=== PATIENT | male | born 1950 | race Caucasian/White ===

== ENCOUNTER 2017-08-01 20:00 | Observation (INO) ==
[2017-08-01] MEDS ORDERED: 0.9 % Sodium Chloride 1,000 ML ONE (20:19)
--- NOTE | 2017-08-01 20:45 | Emergency Department Note ---
Disposition Clinical Impression: Atrial flutter with rapid ventricular response, Hypokalemia Leukocytosis Qualifiers: Leukocytosis type: unspecified Qualified Code(s): D72.829 - Elevated white blood cell count, unspecified Disposition: Admitted As Inpatient Condition: Good Forms: ED Satisfaction Letter Arrhythmia/Palpitations HPI - General Chief Complaint: ED Arrhythmia/Palpitations Stated Complaint: Chest Pain Time Seen by Provider: 08/01/17 20:12 Source: patient Mode of arrival: private vehicle Limitations: no limitations Nursing Notes Reviewed: Yes Vital Signs Reviewed: Yes - History of Present Illness HPI Narrative: 67-year-old male history of COPD who presents to the ER with a chief complaint of chest pain. Patient states he noticed some pain a few hours ago. Has not felt well for a few days and was having pain intermittently during that time. Patient reports he had a left heart catheterization roughly 30 years ago that no workup since. No associated symptoms with the exception of some shortness of breath. He has noticed some lower extremity swelling during this time. Also states he felt some palpitations throughout this. Upon arrival he was noted to be in SVT with a rate of 150. Pt Subjective Complaint: rapid heart beat Onset (ago): hour(s) Duration: constant Severity: mild Context: occurred during rest Associated symptoms: Reports: chest pain, shortness of breath - Related Data Home Medications Medication Instructions Recorded Confirmed Albuterol Sulfate [Ventolin Hfa] 2 puff IH Q4H PRN 08/01/17 08/01/17 Budesonide/Formoterol 160/4.5 2 puff IH BID 08/01/17 08/01/17 [Symbicort 160/4.5] Lisinopril/Hydrochlorothiazide 1 tab PO DAILY 08/01/17 08/01/17 [Zestoretic 20-25 mg Tablet] Oxycodone HCl/Acetaminophen 1 tab PO QID PRN 08/01/17 08/01/17 [Percocet 10-325 mg Tablet] predniSONE [PredniSONE] 15 mg PO DAILY 08/01/17 08/01/17 Allergies Allergy/AdvReac Type Severity Reaction Status Date / Time Penicillins AdvReac Anaphylaxis Verified 08/01/17 20:58 All systems ED: reviewed and negative except as stated. Constitutional: Denies: fever Cardiovascular: Reports: chest pain, palpitations Respiratory: Reports: dyspnea. Denies: cough Gastrointestinal: Denies: abdominal pain, nausea, vomiting Past Medical History - Past Medical History Attestation: Yes The following information was validated with the patient. Source: patient Medical history: Reports: COPD, hypertension Surgical history: Reports: non-contributory Psychiatric history: Reports: no psych history - Social History Smoking Status: Former smoker Smokeless Tobacco Status: No Alcohol use: Reports: none Drug use: Reports: none Physical Exam - General Limitations: no limitations General appearance: alert, in no apparent distress - Head Head exam: atraumatic, normocephalic - Eye Eye exam: Present: normal appearance - ENT ENT exam: normal exam - Neck Neck exam: Present: normal inspection - Chest Chest inspection: Present: normal inspection, symmetric chest wall rise - Respiratory Respiratory exam: Present: normal lung sounds bilaterally - Cardiovascular Cardiovascular exam: Present: normal rhythm, tachycardia, normal heart sounds - Abdominal Exam Abdominal exam: Present: soft, Non-Tender. Absent: tenderness - Extremities Exam Extremities exam: Present: normal inspection, full ROM - Expanded Upper Extremity Exam Shoulder exam: Present: normal inspection, full ROM Arm exam: Present: normal inspection, full ROM Elbow exam: Present: normal inspection, full ROM Forearm/Wrist exam: Present: normal inspection, full ROM Hand exam: Present: normal inspection, full ROM - Expanded Lower Extremity Exam Hip/Pelvis exam: Present: normal inspection, full ROM Upper leg exam: Present: normal inspection, full ROM Knee exam: Present: normal inspection, full ROM Lower leg exam: Present: normal inspection, full ROM, swelling (1+ bilateral lower extremity pitting edema) Ankle exam: Present: normal inspection, full ROM Foot/toe exam: Present: normal inspection, full ROM Course Course Narrative: Patient seen and examined at time of arrival. EKG demonstrates SVT with a rate of 150. Otherwise hemodynamically stable with a good blood pressure. Proximal IV obtained. Crash cart in the room patient on pads. After assuring that he had a good blood pressure the patient was given 6 mg of adenosine which revealed an underlying atrial flutter rhythm. Quickly returned back to SVT. At this point we will Cardizem bolus and start an infusion as well as obtain a chest x-ray labs including troponin and TSH and electrolytes. He understands he will be admitted to the hospital and is in agreement. - Reevaluation(s) Reevaluation #1: Discussed results of imaging and labs with the patient. Converted to sinus rhythm after Cardizem bolus. Currently rate controlled on 5 mg of Cardizem infusion. Agreeable with being admitted. Vital Signs Temperature 98.3 F 08/01/17 20:03 Pulse Rate 153 08/01/17 20:03 Respiratory Rate 20 08/01/17 20:03 Blood Pressure 111/69 08/01/17 20:03 O2 Sat by Pulse Oximetry 95 08/01/17 20:03 Temperature 98.3 F 08/01/17 20:03 Pulse Rate 160 08/01/17 20:50 Respiratory Rate 17 08/01/17 20:50 Blood Pressure 137/88 08/01/17 20:50 O2 Sat by Pulse Oximetry 96 08/01/17 20:50 Oxygen Delivery Oxygen Delivery Nasal Cannula Arrhythmia/Palpitations - [facility] Narrative Medical decision making narrative: 67-year-old male presents for chest pain and palpitations. Symptoms began a few hours ago. Refused to come to the hospital previously. Noted to be in SVT on arrival. With 6 more grams of adenosine underlying rhythm found to be a flutter. Cardizem bolus and drip currently rate controlled. Noted to have a leukocytosis. No obvious source. He is admitted to the hospitalist service for a flutter with RVR. - Lab Data Lab results reviewed: Yes I reviewed the patient's lab results. Result diagrams: 08/01/17 20:20 08/01/17 20:20 Lab Results 08/01/17 08/01/17 08/01/17 Range/Units 20:20 20:20 21:04 WBC 17.0 H (4.3-11.1) K/mcL RBC 4.72 (4.19-5.50) M/mcL Hgb 15.6 (12.9-16.9) g/dL Hct 44.8 (37.5-50.1) % MCV 94.9 (83.0-100.0) fL MCH 33.1 (28.0-33.3) pg MCHC 34.8 (31.6-35.5) g/dL RDW 13.0 (11.5-14.5) % Plt Count 314 (140-400) K/mcL MPV 9.8 (9.4-12.4) fL Immature Gran % 1.1 (0-4) % Seg Neutrophils % 81.9 % Lymphocytes % 9.9 % Monocytes % 5.9 % Eosinophils % 0.8 % Basophils % 0.4 % Neutrophils # 14.0 H (1.6-8.9) K/mcL Lymphocytes # 1.7 (0.6-4.6) K/mcL Monocytes # 1.0 (0.0-1.3) K/mcL Eosinophils # 0.1 (0.0-0.6) K/mcL Basophils # 0.1 (0.0-0.2) K/mcL PT 10.6 (9.4-12.1) Seconds INR 1.0 APTT 28.1 (26.0-36.0) Seconds Sodium 136 (136-145) mEq/L Potassium 3.3 L (3.5-5.1) mEq/L Chloride 94 L (98-107) mEq/L Carbon Dioxide 29 (23-29) mEq/L BUN 15 (8-23) mg/dL Creatinine 0.88 (0.70-1.30) mg/dL Est GFR ( Amer) > 60 (> 60) Est GFR (Non-Af Amer) > 60 (> 60) BUN/Creatinine Ratio 17 (6-26) Glucose 163 H (70-105) mg/dL Calculated Osmolality 286 (280-300) Calcium 9.2 (8.6-10.3) mg/dL Troponin I < 0.03 (< 0.04) ng/mL TSH 2.042 (0.340-5.600) mcIU/mL - Radiology Data Radiology results reviewed: Yes I reviewed the patient's radiology results. Chest X-Ray 08/01/17 20:38 IMPRESSION: No acute focal airspace consolidation or overt pulmonary edema. D/ / Daryn Parry MD / Daryn Parry MD Interpreting Provider: Daryn Parry MD - EKG Data EKG attestation: Yes I reviewed and interpreted this EKG. EKG results narrative: EKG demonstrates SVT with a rate of 151. Normal axis. Normal intervals. Normal R-wave progression. No gross ST elevations or depressions. Prior EKG demonstrates sinus rhythm. EKG immediately following adenosine demonstrates atrial flutter waves evolving into normal sinus rhythm with a rate of 60 bpm. EKG 3 minutes later demonstrates SVT with a rate of 152. Unchanged from initial EKG. S.B.A.Dana. - Aditi.Luis Situation: Demographics, MOA Background: Presenting Complaint, Relevant PMH, Meds, & Allergies Assessment: Vital Signs, Course and respsone to treatment, Exam Concerns, Patient/Family Expectation, Pertinant Lab Results Recommendation: Barrier(s) to disposition, Recommendation based on pending studies, treatments, or consults S.B.A.Violet Report Given to: Dr. David Lucero Repor Time: 22:17
[2017-08-01 20:56] LABS: Basophils # 0.1 K/mcL (0.0-0.2); Basophils % 0.4 %; Eosinophils # 0.1 K/mcL (0.0-0.6); Eosinophils % 0.8 %; Hematocrit 44.8 % (37.5-50.1); Hemoglobin 15.6 g/dL (12.9-16.9); Immature Granulocytes % 1.1 % (0-4); Lymphocytes # 1.7 K/mcL (0.6-4.6); Lymphocytes % 9.9 %; Mean Corpuscular HGB Conc 34.8 g/dL (31.6-35.5); Mean Corpuscular Hemoglobin 33.1 pg (28.0-33.3); Mean Corpuscular Volume 94.9 fL (83.0-100.0); Mean Platelet Volume 9.8 fL (9.4-12.4); Monocytes % 5.9 %; Platelet Count 314 K/mcL (140-400); Red Blood Count 4.72 M/mcL (4.19-5.50); Segmented Neutrophils % 81.9 %
[2017-08-01 21:16] LABS: BUN/Creatinine Ratio 17 (6-26); Blood Urea Nitrogen 15 mg/dL (8-23); Calcium 9.2 mg/dL (8.6-10.3); Carbon Dioxide 29 mEq/L (23-29); Chloride 94 mEq/L (98-107); Glucose 163 mg/dL (70-105); Osmolality,Calculated 286 (280-300); Potassium 3.3 mEq/L (3.5-5.1); Sodium 136 mEq/L (136-145); Troponin I < 0.03 ng/mL (< 0.04); eGFR For African Americans > 60 (> 60); eGFR For Non-African Americans > 60 (> 60)
[2017-08-01 21:29] LABS: Thyroid Stimulating Hormone 2.042 mcIU/mL (0.340-5.600)
[2017-08-01 21:48] LABS: Prothrombin Time 10.6 Seconds (9.4-12.1)
[2017-08-01 21:51] LABS: Activated Partial Thrombo Time 28.1 Seconds (26.0-36.0)
[2017-08-01] MEDS ORDERED: Aspirin 81 MG TAB.CHEW PO ONE (22:30)
--- NOTE | 2017-08-01 22:45 | Emergency Department Note ---
Disposition Clinical Impression: Atrial flutter with rapid ventricular response, Hypokalemia Leukocytosis Qualifiers: Leukocytosis type: unspecified Qualified Code(s): D72.829 - Elevated white blood cell count, unspecified Disposition: Admitted As Inpatient Condition: Good General Adult HPI - General Chief complaint: ED Arrhythmia/Palpitations Stated complaint: Chest Pain Time Seen by Provider: 08/01/17 20:12 Source: patient Mode of arrival: private vehicle Limitations: no limitations - History of Present Illness Pain Scale: 0 - Related Data Home Medications Medication Instructions Recorded Confirmed Albuterol Sulfate [Ventolin Hfa] 2 puff IH Q4H PRN 08/01/17 08/01/17 Budesonide/Formoterol 160/4.5 2 puff IH BID 08/01/17 08/01/17 [Symbicort 160/4.5] Lisinopril/Hydrochlorothiazide 1 tab PO DAILY 08/01/17 08/01/17 [Zestoretic 20-25 mg Tablet] Oxycodone HCl/Acetaminophen 1 tab PO QID PRN 08/01/17 08/01/17 [Percocet 10-325 mg Tablet] predniSONE [PredniSONE] 15 mg PO DAILY 08/01/17 08/01/17 Allergies Allergy/AdvReac Type Severity Reaction Status Date / Time Penicillins AdvReac Anaphylaxis Verified 08/01/17 20:58 Constitutional: Denies: fever Cardiovascular: Reports: chest pain, palpitations Respiratory: Reports: dyspnea. Denies: cough Gastrointestinal: Denies: abdominal pain, nausea, vomiting Past Medical History - Past Medical History Medical history: Reports: COPD, hypertension Surgical history: Reports: non-contributory Psychiatric history: Reports: no psych history - Social History Smoking Status: Former smoker Smokeless Tobacco Status: No Alcohol use: Reports: none Drug use: Reports: none Physical Exam - General Limitations: no limitations General appearance: alert, in no apparent distress Course Vital Signs Temperature 98.3 F 08/01/17 20:03 Pulse Rate 153 08/01/17 20:03 Respiratory Rate 20 08/01/17 20:03 Blood Pressure 111/69 08/01/17 20:03 O2 Sat by Pulse Oximetry 95 08/01/17 20:03 Temperature 98.3 F 08/01/17 20:03 Pulse Rate 160 08/01/17 20:50 Respiratory Rate 17 08/01/17 20:50 Blood Pressure 137/88 08/01/17 20:50 O2 Sat by Pulse Oximetry 96 08/01/17 20:50 Oxygen Delivery Oxygen Delivery Nasal Cannula Medical Decision Making - Lab Data Result diagrams: 08/01/17 20:20 08/01/17 20:20 Lab Results 08/01/17 08/01/17 08/01/17 Range/Units 20:20 20:20 21:04 WBC 17.0 H (4.3-11.1) K/mcL RBC 4.72 (4.19-5.50) M/mcL Hgb 15.6 (12.9-16.9) g/dL Hct 44.8 (37.5-50.1) % MCV 94.9 (83.0-100.0) fL MCH 33.1 (28.0-33.3) pg MCHC 34.8 (31.6-35.5) g/dL RDW 13.0 (11.5-14.5) % Plt Count 314 (140-400) K/mcL MPV 9.8 (9.4-12.4) fL Immature Gran % 1.1 (0-4) % Seg Neutrophils % 81.9 % Lymphocytes % 9.9 % Monocytes % 5.9 % Eosinophils % 0.8 % Basophils % 0.4 % Neutrophils # 14.0 H (1.6-8.9) K/mcL Lymphocytes # 1.7 (0.6-4.6) K/mcL Monocytes # 1.0 (0.0-1.3) K/mcL Eosinophils # 0.1 (0.0-0.6) K/mcL Basophils # 0.1 (0.0-0.2) K/mcL PT 10.6 (9.4-12.1) Seconds INR 1.0 APTT 28.1 (26.0-36.0) Seconds Sodium 136 (136-145) mEq/L Potassium 3.3 L (3.5-5.1) mEq/L Chloride 94 L (98-107) mEq/L Carbon Dioxide 29 (23-29) mEq/L BUN 15 (8-23) mg/dL Creatinine 0.88 (0.70-1.30) mg/dL Est GFR ( Amer) > 60 (> 60) Est GFR (Non-Af Amer) > 60 (> 60) BUN/Creatinine Ratio 17 (6-26) Glucose 163 H (70-105) mg/dL Calculated Osmolality 286 (280-300) Calcium 9.2 (8.6-10.3) mg/dL Troponin I < 0.03 (< 0.04) ng/mL TSH 2.042 (0.340-5.600) mcIU/mL Attestation Statement - Attestation Attestation: I examined this patient and my medical decision-making was reviewed with the Resident Physician, Dr. Salas. I agree with the documented findings, disposition and treatment plan as described except to the extent set forth below. Patient is a 67-year-old white male who presents to the emergency department today with complaints of chest pain and palpitations. Patient has history of COPD and is on oxygen at home 2 L nasal cannula, and denies any increase in shortness of breath, fevers chills or cough. Patient states he "has not felt well for the past 2 days" and then he has been experiencing intermittent episodes of chest pain and then tonight a few hours prior to arrival felt like his heart was racing. Patient's not had any history of any tach arrhythmias. I agree with patient's physical exam findings as documented. Patient was tachycardic but with a stable blood pressure on arrival. EKG showed a sinus tachycardia possible SVT. Heart rate was 1 50 bpm with a stable blood pressure. Patient was evaluated on arrival, placed on defibrillator pads large-bore IV was established patient was placed on oxygen cardiac monitoring and continuous pulse ox. Patient was given 6 kg with adenosine at bedside and with transient slow rate appeared consistent with flutter waves. Heart rate resumed at 1 50 bpm. Patient's blood pressure stable. When rate was slowed seem consistent with atrial flutter. Patient was started on Cardizem bolus and drip which divided adequate rate control and heme remained with a stable blood pressure. Patient was also prescribed aspirin. Lab evaluation chest x-ray was obtained which is all within normal limits. Patient will be admitted to the hospitalist service for new onset atrial flutter , rate controlled at this time and hemodynamically stable.
[2017-08-02] MEDS ORDERED: *HR* Heparin 5,000 UNIT/ML VIAL IVP PRN ×2 (00:11)
[2017-08-02] MEDS ORDERED: *HR* Heparin 5,000 UNIT/ML VIAL IVP ONE (00:11)
--- NOTE | 2017-08-02 00:33 | Internal Med History&Physical ---
<Мария Diallo - Last Filed: 08/02/17 01:27> Date of Encounter: 08/02/17 Time of Encounter: 00:01 Internal Medicine - H&P: HPI Chief complaint: palpitations Admitted From: Emergency Dept Plans for Post Hospital Care: Home History of present illness: Mr. Levin is a 67 year old male with past medical history of COPD (wears 2L oxygen at night), back pain, degenerative disc disease, hypertension, osteoarthritis. He has history of cardiac catheterization years ago with no intervention. Patient arrived to the emergency department with chief complaint of chest pain that started a few hours before arrival. He also admitted to having shortness of breath and lower extremity swelling. His chest pain was substernal without any radiation. He describes the chest pain as a dull ache, 2 -3/10. Upon arrival to the emergency department, she was found to be in SVT with heart rate in 150s. He received 6 mg of adenosine, and his rhythm was atrial flutter with RVR. He was given Cardizem bolus and then put on Cardizem GTT. Patient converted back to sinus rhythm with Cardizem bolus. he reports increased cough, increased shortness of breath with minimal exertion, increased sputum production for the past couple days. He does take prednisone chronically at home for his COPD. His last dose of prednisone was a couple days ago. He denies nausea, vomiting, diarrhea, fever, chills. He did also denies hematuria, hematochezia, melena. Patient states that he does snore but has never been evaluated with a sleep study. Past Med Surg Social Fam HX - Past Medical History Medical history: COPD, hypertension Psychiatric history: no psych history - Past Surgical History Surgical History: non-contributory - Social History Smoking Status: Former smoker Smokeless Tobacco Status: No Alcohol use: none Drug use: none Internal Medicine - H&P: Meds Albuterol Sulfate [Ventolin Hfa] 2 puff IH Q4H PRN 08/01/17 [History] Budesonide/Formoterol 160/4.5 [Symbicort 160/4.5] 2 puff IH BID 08/01/17 [ History] Lisinopril/Hydrochlorothiazide [Zestoretic 20-25 mg Tablet] 1 tab PO DAILY 08/01 [History] Oxycodone HCl/Acetaminophen [Percocet 10-325 mg Tablet] 1 tab PO QID PRN [History] predniSONE [PredniSONE] 15 mg PO DAILY 08/01/17 [History] 3 Allergy/AdvReac Type Severity Reaction Status Date / Time Penicillins AdvReac Anaphylaxis Verified 08/01/17 20:58 All Systems PM: A 10-system review of systems was performed and is negative for pertinent findings except as documented above in the HPI. - Constitutional Vitals: Temp Pulse Resp BP Pulse Ox 97.6 F 87 16 132/54 93 08/01/17 23:54 08/01/17 23:54 08/01/17 23:54 08/01/17 23:54 08/01/17 23:54 General appearance: Present: A&O X 3, pleasant, no acute distress, answers questions appropriately - Head Head exam: Present: atraumatic, normocephalic - Neck Neck exam general surgery: Present: supple, trachea midline - Respiratory Additional comments: Decreased breath sounds, significant inspiratory and expiratory wheezing present in all lung us. - Cardiovascular Cardiovascular exam: Present: RRR, +S1, +S2 - GI/Abdominal GI/Abdominal exam: Present: distended, hypoactive bowel sounds, soft. Absent: tenderness - Extremities Exam Extremities exam: Absent: cyanotic Additional comments: +2 left lower extremity pitting edema, +1 right lower extremity pitting edema - Neurological Exam Neurological exam: Present: alert, oriented X3, no focal deficits - Psychiatric Psychiatric exam: Present: normal affect, normal mood Internal Med - H&P Results - Labs CBC & Chem 7: 08/01/17 20:20 08/01/17 20:20 - Assessment and plan (1) Atrial flutter with rapid ventricular response Current Visit: Yes Status: Acute Assessment and plan: Patient arrived to the hospital with dull chest pain, palpitations and was found to be in SVT. After 6 mg of adenosine, EKG showed atrial flutter with rapid ventricular response. Patient converted to sinus rhythm after receiving Cardizem bolus. Chest x-ray showed no focal consolidation or pulmonary edema. Initial troponin negative. TSH 2.042 etiology unclear at this time plan: continue Cardizem GTT continue heparin GTT chest CTA to rule out PE echocardiogram pending bilateral lower extremity Doppler pending repeat EKG pending trend troponins (2) COPD exacerbation Current Visit: Yes Status: Acute Assessment and plan: Patient presents with increased shortness of breath minimal exertion, increased cough Plan: scheduled Duonebs Zithromax day 1 IV methylprednisolone. inhaled corticosteroids (3) Leukocytosis Current Visit: Yes Status: Acute Assessment and plan: Liberated heart rate secondary to SVT. Leukocytosis could be secondary to demarginalization from SVT, and concurrent prednisone use at home. UA negative, chest x-ray showed no obvious signs of consolidation No concern for sepsis/infection at this time. Plan: continue Zithromax for COPD exacerbation. Continue to monitor white count and temperature, if concern for sepsis, consider re-evaluation and start broad-spectrum antibiotics Qualifiers: Leukocytosis type: unspecified Qualified Code(s): D72.829 - Elevated white blood cell count, unspecified (4) HTN (hypertension) Current Visit: Yes Status: Acute Assessment and plan: Continue home medications Qualifiers: Hypertension type: unspecified Qualified Code(s): I10 - Essential (primary ) hypertension (5) DVT prophylaxis Current Visit: Yes Status: Acute Assessment and plan: heparin gtt (6) Degenerative disc disease Current Visit: Yes Status: Acute Assessment and plan: Continue home pain medications. Qualifiers: Spinal region: mid-cervical Mid-cervical spinal level: unspecified Qualified Code(s): M50.320 - Other cervical disc degeneration, mid-cervical region, unspecified level - Time Spent With Patient Total time spent is greater than 50% in coordination of care (as documented) at patient's floor/unit and/or counseling patient: <Jason Hernandez - Last Filed: 08/02/17 06:14> Date of Encounter: 08/02/17 Time of Encounter: 03:20 Past Med Surg Social Fam HX - Additional Family History Additional family history: + COPD - Constitutional Constitutional: no chills, no fever(s) - EENT Eyes: no blurry vision, no change in vision Ears: no ear pain, no tinnitus Nose, mouth and throat: no nasal congestion, no sinus pressure, no sore throat - Cardiovascular Cardiovascular ROS IM: chest pain, dyspnea, dyspnea on exertion, irregular heart rhythm, palpitations - Respiratory Respiratory: cough, dyspnea, dyspnea on exertion, wheezing, chest congestion, no hemoptysis, no excessive phlegm production, no change in phlegm color, no pain with cough - Gastrointestinal Gastrointestinal: no abdominal pain, no diarrhea, no hematemesis, no hematochezia, no melena, no vomiting - Genitourinary Genitourinary ROS male: no dysuria, no hematuria, no nocturia - Musculoskeletal Musculoskeletal ROS IM: arthralgias, no back pain - Integumentary Integumentary IM: no rash - Neurological Neurological ROS: no dizziness, no focal weakness, no frequent falls, no headache(s) - Psychiatric Psychiatric: no anxiety, no depression - Endocrine Endocrine IM: no polydipsia, no polyuria - Hematologic/Lymphatic Hematologic/Lymphatic: no easy bruising, no lymphadenopathy - Allergic/Immunologic Allergic/Immunologic: wheezing, no GI upset with certain foods - Constitutional Vitals: Temp Pulse Resp BP Pulse Ox 97.7 F 86 19 134/82 99 08/02/17 04:40 08/02/17 04:40 08/02/17 04:40 08/02/17 04:40 08/02/17 04:40 General appearance: Present: A&O X 3, no acute distress - Head Head exam: Present: normal inspection - Eye Eye exam: Present: EOMI, PERRL. Absent: scleral icterus - ENT ENT exam: Present: mucous membranes dry, normal exam - Neck Neck exam general surgery: Present: supple. Absent: lymphadenopathy, tenderness , nuchal rigidity, thyromegaly - Respiratory Respiratory exam: Present: accessory muscle use, prolonged expiratory phase, respiratory distress (mild to moderate), rhonchi, wheezes, tachypnea. Absent: chest wall tenderness, rales - Cardiovascular Cardiovascular exam: Present: RRR, +S1, +S2. Absent: diastolic murmur, systolic murmur - GI/Abdominal GI/Abdominal exam: Present: distended, hypoactive bowel sounds, soft. Absent: hepatomegaly, splenomegaly - Extremities Exam Extremities exam: Present: normal capillary refill, pedal edema (asymmetrical), warm, radial pulses palpable and symmetrical. Absent: calf tenderness, joint swelling - Back Exam Back exam: Absent: CVA tenderness (L), CVA tenderness (R) - Neurological Exam Neurological exam: Present: alert, oriented X3, no focal deficits - Psychiatric Psychiatric exam: Present: normal affect, normal mood - Skin Skin exam: Present: dry, warm. Absent: rash Internal Med - H&P Results - Labs CBC & Chem 7: 08/01/17 20:20 08/02/17 01:46 Labs: BMP 08/02/17 01:46 Sodium 135 L Potassium 4.5 D Chloride 100 Carbon Dioxide 29 BUN 14 Creatinine 0.77 Glucose 194 H Calcium 8.4 L Urine 08/02/17 Range/Units 01:00 Urine Color Yellow (Yellow) Urine Clarity Clear (Clear) Urine pH 7.0 (5.0-8.0) pH Units Ur Specific [place] 1.016 (1.010-1.025) Urine Protein Negative (Neg-Trace) mg/dL Urine Glucose (UA) Normal (Normal) mg/dL - EKG Data -: EKG Interpreted by Myself - EKG Data Prior EKG available for review: no EKG comments: 08/02/17 06:08 SVT, followed by Atrial Flutter w RVR; currently in NSR - Diagnostic Studies Chest x-ray Status: image reviewed by me (negative) - Attending Attestation I discussed the patient KLUTI KAAH, past medical history, review of systems, lab data , and exam findings with Dr. Diallo. I then saw and examined patient independently. Patient is feeling much better now but he is still audibly wheezing and tachypneic and having some signs of respiratory distress. He states he feels much better than upon presentation. He had been having coughing , congestion, wheezing, worsening dyspnea, and palpitations. I personally reviewed his EKGs and agree he was in SVT followed by atrial flutter. He is currently in normal sinus rhythm. He has never had dysrhythmias before. Given his chest pain and sudden onset of a atrial flutter with RVR, I am inclined to pursue workup for PE. He is on heparin anticoagulation for now. We will continue that given the dysrhythmia noted and for concerns of possible PE. He also has asymmetrical swelling of his legs and there is slight concern for DVT. Therefore, we will Doppler legs in addition to obtaining CT angiogram of the chest. Other than the above documented findings and my noted exam findings, I agree with Dr. Diallo' assessment and plan. - Assessment and plan (1) Atrial flutter with rapid ventricular response Current Visit: Yes Status: Acute (2) Leukocytosis Current Visit: Yes Status: Acute Qualifiers: Leukocytosis type: unspecified Qualified Code(s): D72.829 - Elevated white blood cell count, unspecified (3) COPD exacerbation Current Visit: Yes Status: Acute (4) HTN (hypertension) Current Visit: Yes Status: Acute Qualifiers: Hypertension type: unspecified Qualified Code(s): I10 - Essential (primary ) hypertension (5) DVT prophylaxis Current Visit: Yes Status: Acute (6) Degenerative disc disease Current Visit: Yes Status: Acute Qualifiers: Spinal region: mid-cervical Mid-cervical spinal level: unspecified Qualified Code(s): M50.320 - Other cervical disc degeneration, mid-cervical region, unspecified level - Time Spent With Patient Total time spent is greater than 50% in coordination of care (as documented) at patient's floor/unit and/or counseling patient:
[2017-08-02] MEDS ORDERED: Potassium Chloride Elixir 20 MEQ/15 ML UDC PO ONE (00:39)
[2017-08-02] MEDS ORDERED: Naloxone 0.4 MG/ML INJ IVP PRN (00:40)
[2017-08-02] MEDS ORDERED: *HR* OxyCODONE/APAP 10/325 TABLET PO PRN (00:48)
[2017-08-02] MEDS: Budesonide/Formoterol 160/4.5 MDI IH SCH ×3 (01:01→19:56)
[2017-08-02] MEDS: Ipratropium/Albuterol Neb 3 ML IH SCH ×7 (01:01→23:21)
[2017-08-02] MEDS: methylPREDNISolone 125 MG/2 ML VIAL IVP SCH ×3 (01:09→16:34)
[2017-08-02] MEDS: Azithromycin 500 MG in D5% in Water 250 ML IVPB SCH (01:09)
[2017-08-02 01:16] LABS: Bilirubin,Urine Negative (Negative); Blood,Urine Negative (Negative); Clarity,Urine Clear (Clear); Color,Urine Yellow (Yellow); Glucose,Urine (UA) Normal (Normal); Ketones,Urine Negative (Negative); Leukocyte Esterase,Urine Negative (Negative); Nitrite,Urine Negative (Negative); Protein,Urine Negative (Neg-Trace); Specific Gravity,Urine 1.016 (1.010-1.025); Urobilinogen,Urine Normal (Normal)
[2017-08-02] MEDS ORDERED: Isovue-370 500 ML INFUS..BTL IV ONE (01:26)
[2017-08-02] MEDS: Heparin 25,000 UNIT/500 ML D5W 25,000 UNIT/500 ML BAG IVC SCH (03:00)
[2017-08-02 04:16] LABS: BUN/Creatinine Ratio 18 (6-26); Blood Urea Nitrogen 14 mg/dL (8-23); Calcium 8.4 mg/dL (8.6-10.3); Carbon Dioxide 29 mEq/L (23-29); Chloride 100 mEq/L (98-107); Glucose 194 mg/dL (70-105); Osmolality,Calculated 286 (280-300); Phosphorous 3.7 mg/dL (2.7-4.5); Potassium 4.5 mEq/L (3.5-5.1); Sodium 135 mEq/L (136-145); eGFR For African Americans > 60 (> 60); eGFR For Non-African Americans > 60 (> 60)
[2017-08-02 06:27] LABS: Basophils # 0.1 K/mcL (0.0-0.2); Basophils % 0.5 %; Eosinophils # 0.1 K/mcL (0.0-0.6); Eosinophils % 0.8 %; Hematocrit 43.2 % (37.5-50.1); Hemoglobin 14.4 g/dL (12.9-16.9); Immature Granulocytes % 1.7 % (0-4); Lymphocytes # 2.3 K/mcL (0.6-4.6); Lymphocytes % 15.2 %; Mean Corpuscular HGB Conc 33.3 g/dL (31.6-35.5); Mean Corpuscular Hemoglobin 32.6 pg (28.0-33.3); Mean Corpuscular Volume 97.7 fL (83.0-100.0); Monocytes # 1.3 K/mcL (0.0-1.3); Monocytes % 8.4 %; Neutrophils # 11.1 K/mcL (1.6-8.9); Nucleated Red Blood Cells 0.5 /100 WBC (0); Platelet Count 300 K/mcL (140-400); Red Blood Count 4.42 M/mcL (4.19-5.50); Red Cell Distribution Width 13.2 % (11.5-14.5); Segmented Neutrophils % 73.4 %
--- NOTE | 2017-08-02 10:48 | Internal Med Progress Note ---
Date of Encounter: 08/02/17 Time of Encounter: 10:30 - Assessment and plan (1) Atrial flutter with rapid ventricular response Current Visit: Yes Status: Acute Assessment and plan: Continue cardizem and heparin drip. Appreciate cardiology recs (2) Leukocytosis Current Visit: Yes Status: Acute Assessment and plan: Possibly steroid induced. continue azithromycin Qualifiers: Leukocytosis type: unspecified Qualified Code(s): D72.829 - Elevated white blood cell count, unspecified (3) COPD exacerbation Current Visit: Yes Status: Acute Assessment and plan: Continue nebs, steroids and antibiotics (4) HTN (hypertension) Current Visit: Yes Status: Acute Assessment and plan: Continue home medications Qualifiers: Hypertension type: unspecified Qualified Code(s): I10 - Essential (primary ) hypertension (5) DVT prophylaxis Current Visit: Yes Status: Acute Assessment and plan: heparin gtt (6) Degenerative disc disease Current Visit: Yes Status: Acute Qualifiers: Spinal region: mid-cervical Mid-cervical spinal level: unspecified Qualified Code(s): M50.320 - Other cervical disc degeneration, mid-cervical region, unspecified level - Time Spent With Patient Total time spent is greater than 50% in coordination of care (as documented) at patient's floor/unit and/or counseling patient: - Subjective Interval history: No acute events overnight - Constitutional Vitals: Temp Pulse Resp BP Pulse Ox 97.8 F 86 16 151/92 93 08/02/17 07:28 08/02/17 07:28 08/02/17 07:44 08/02/17 07:28 08/02/17 07:44 General appearance: Present: A&O X 3, no acute distress - Head Head exam: Present: atraumatic, normocephalic - Eye Eye exam: Present: PERRL, conjuntiva pink, sclera anicteric Pupils: Present: PERRL - Neck Neck exam general surgery: Present: supple, trachea midline. Absent: lymphadenopathy - Respiratory Respiratory exam: Present: CTAB. Absent: accessory muscle use, rales, rhonchi, wheezes - Cardiovascular Cardiovascular exam: Present: diastolic murmur, RRR, +S1, +S2. Absent: gallop, rubs, systolic murmur - GI/Abdominal GI/Abdominal exam: Present: normal bowel sounds, soft, no peritoneal signs. Absent: distended, tenderness - Extremities Exam Extremities exam: Present: warm, radial pulses palpable and symmetrical. Absent : calf tenderness, cyanotic, pedal edema - Neurological Exam Neurological exam: Present: CN II-XII intact, oriented X3, no focal deficits. Absent: pronater drift, facial droop, speech deficit - Skin Skin exam: Present: dry, intact Internal Medicine: Result - Labs CBC & Chem 7: 08/02/17 01:46 08/02/17 01:46 Labs: Short CBC 08/02/17 Range/Units 01:46 WBC 15.2 H (4.3-11.1) K/mcL Hgb 14.4 (12.9-16.9) g/dL Hct 43.2 (37.5-50.1) % Plt Count 300 (140-400) K/mcL Neutrophils # 11.1 H (1.6-8.9) K/mcL BMP 08/02/17 01:46 Sodium 135 L Potassium 4.5 D Chloride 100 Carbon Dioxide 29 BUN 14 Creatinine 0.77 Glucose 194 H Calcium 8.4 L Cardiac Enzymes 08/02/17 Range/Units 01:46 Troponin I < 0.03 (< 0.04) ng/mL Urine 08/02/17 Range/Units 01:00 Urine Color Yellow (Yellow) Urine Clarity Clear (Clear) Urine pH 7.0 (5.0-8.0) pH Units Ur Specific [place] 1.016 (1.010-1.025) Urine Protein Negative (Neg-Trace) mg/dL Urine Glucose (UA) Normal (Normal) mg/dL - ABG Interpretation ABG results: PT/INR, D-dimer PT 10.6 Seconds (9.4-12.1) 08/01/17 21:04 Consult Discharge Plan - Plan Referrals: Michi Gross MD [Primary Care Provider] -
--- NOTE | 2017-08-02 11:18 | Cardiology Consult Note ---
Addendum entered and electronically signed by Kole Denney CNP 08/02/17 12:00: Xarelto bah check $8.35/month, affordable. Echo resulted, EF 65%, mild LVDD, aortic valve not well visualized appears to have mild-moderate by doppler. Anticipate sign off once seen and evaluated by Dr. Ott. Original Note: Date of Encounter: 08/02/17 Time of Encounter: 11:17 Assessment and Plan (1) Atrial flutter with rapid ventricular response Current Visit: Yes Status: Acute Presented in SVT, HR 150s, given Adenosine 6mg with repeat EKG that appears to be A-Flutter with RVR, in setting of COPD exacerbation, likely driving factor. EKGs reviewed with Dr. Ott. Was given Cardizem bolus and started on gtt, since converted to SR. Start PO Cardizem CD 120mg daily. Pt was symptomatic when in SVT/A-Flutter, developed acute onset of chest pain that started yesterday at 5PM, midsternal, achy and has been intermittent, now resolved back in SR. Troponin negative x 2. TTE to evaluate structure and function. [id number] 2 (Age and HTN). Currently on heparin gtt. Discussed Coumadin vs NOACs, prefers NOAC, will bah check. Would also recommend outpt EP evaluation for possible ablation given pt was symptomatic. If no significant findings on TTE, anticipate sign off. Discussion w patient/family: The assessment and plan as outlined above was discussed with the patient and/or family members who expressed understanding and agreement. All questions were answered. Thank you for involving us in the care of your patient. Please call with any questions. I will discuss all the above with Dr. Ott and make changes as necessary. History of Present Illness Consult date: 08/02/17 Requesting physician: Mallory Valerio Consult reason: SVT, A-Flutter Chief complaint: chest pain, dyspnea History of present illness: Mr. Levin is a 67 year old male with PMH of COPD (wears 2L oxygen at night), back pain, degenerative disc disease, HTN, osteoarthritis that presented to ED with chief complaint of chest pain that started yesterday at 5PM, midsternal, achy and has been intermittent. He also reports to having worsening shortness of breath and lower extremity swelling. Upon arrival to the emergency department , he was found to be in SVT with heart rate in 150s. He received 6 mg of adenosine, and then underlying rhythm appeared to be atrial flutter with RVR. He was given Cardizem bolus and then put on Cardizem Gtt, then converted back to SR. Troponin negative x 2. Diagnosed with COPD exacerbation. Cardiology consulted for further recs. Pt now chest pain free. Chest CTA negative for PE. Pt reports LHC ~30 years ago without intervention. Past Med Surg Social Fam HX - Past Medical History Medical history: COPD, hypertension Psychiatric history: no psych history - Past Surgical History Surgical History: non-contributory - Social History Smoking Status: Former smoker Smokeless Tobacco Status: No Alcohol use: none Drug use: none Medications and Allergies Albuterol Sulfate [Ventolin Hfa] 2 puff IH Q4H PRN 08/01/17 [History] Budesonide/Formoterol 160/4.5 [Symbicort 160/4.5] 2 puff IH BID 08/01/17 [ History] Lisinopril/Hydrochlorothiazide [Zestoretic 20-25 mg Tablet] 1 tab PO DAILY 08/01 [History] Oxycodone HCl/Acetaminophen [Percocet 10-325 mg Tablet] 1 tab PO QID PRN [History] predniSONE [PredniSONE] 15 mg PO DAILY 08/01/17 [History] 3 Allergy/AdvReac Type Severity Reaction Status Date / Time Penicillins AdvReac Anaphylaxis Verified 08/01/17 20:58 All Systems Review: The remainder of the systems were reviewed and are negative - Cardiovascular Cardiovascular: as per HPI, chest pain at rest, dyspnea at rest, dyspnea on exertion, leg edema - Respiratory Respiratory: dyspnea Physical Examination Vital Signs, Last 4 Hours Temp Pulse Resp BP Pulse Ox 08/02/17 10:39 96 08/02/17 07:44 16 93 08/02/17 07:28 97.8 F 86 15 151/92 94 Vital Signs Temp Pulse Resp BP Pulse Ox 08/02/17 11:18 97.8 F 75 15 149/84 95 08/02/17 10:39 96 08/02/17 07:44 16 93 08/02/17 07:28 97.8 F 86 15 151/92 94 08/02/17 04:45 18 97 08/02/17 04:40 97.7 F 86 19 134/82 99 08/02/17 01:05 24 93 08/01/17 23:54 97.6 F 87 16 132/54 93 08/01/17 23:12 87 18 136/88 96 08/01/17 22:40 81 18 137/88 94 08/01/17 20:50 160 17 137/88 96 08/01/17 20:03 98.3 F 153 20 111/69 95 Intake and Output 08/01/17 08/02/17 08/02/17 23:59 07:59 15:59 Intake Total 0 / 0 0 / 0 360 / 360 Output Total 0 / 0 1050 / 1050 300 / 300 Balance 0 / 0 -1050 / -1050 60 / 60 Intake: Oral 0 / 0 0 / 0 360 / 360 Output: Urine 0 / 0 1050 / 1050 300 / 300 Other: Meal Breakfast Percent of Meal Consumed 100% Weight 92.8 kg General: Conversant, No Apparent Distress HEENT: Atraumatic, Normocephaly, Mucus Membranes Moist Neck: No JVD, Normal carotid pulses Cardiac: Reg Rate and Rhythm, Normal S1 and S2, No Murmur Lungs: Other (wheezes noted bilaterally ) Neuro: Alert and responsive, No focal deficits noted Abdomen: Soft, Non-Tender Skin: No rashes noted on visualized skin Musculoskeletal: No Chest Wall Tenderness Extremities: Other (mild LE edema) Results 08/02/17 01:46 08/02/17 01:46 Lab Results 08/02/17 08/02/17 08/02/17 01:46 01:46 01:46 WBC 15.2 H Hgb 14.4 Hct 43.2 Plt Count 300 Sodium 135 L Potassium 4.5 D Chloride 100 Carbon Dioxide 29 BUN 14 Creatinine 0.77 Glucose 194 H Calcium 8.4 L Magnesium 2.0 Troponin I < 0.03 Short CBC 08/02/17 08/01/17 Range/Units 01:46 20:20 WBC 15.2 H 17.0 H (4.3-11.1) K/mcL Hgb 14.4 15.6 (12.9-16.9) g/dL Hct 43.2 44.8 (37.5-50.1) % Plt Count 300 314 (140-400) K/mcL Neutrophils # 11.1 H 14.0 H (1.6-8.9) K/mcL BMP 08/02/17 08/01/17 Range/Units 01:46 20:20 Sodium 135 L 136 (136-145) mEq/L Potassium 4.5 D 3.3 L (3.5-5.1) mEq/L Chloride 100 94 L (98-107) mEq/L Carbon Dioxide 29 29 (23-29) mEq/L BUN 14 15 (8-23) mg/dL Creatinine 0.77 0.88 (0.70-1.30) mg/dL Glucose 194 H 163 H (70-105) mg/dL Calcium 8.4 L 9.2 (8.6-10.3) mg/dL Cardiac Enzymes 08/02/17 08/01/17 Range/Units 01:46 20:20 Troponin I < 0.03 < 0.03 (< 0.04) ng/mL Urine 08/02/17 Range/Units 01:00 Urine Color Yellow (Yellow) Urine Clarity Clear (Clear) Urine pH 7.0 (5.0-8.0) pH Units Ur Specific [place] 1.016 (1.010-1.025) Urine Protein Negative (Neg-Trace) mg/dL Urine Glucose (UA) Normal (Normal) mg/dL Impressions Chest X-Ray 08/01/17 20:38 IMPRESSION: No acute focal airspace consolidation or overt pulmonary edema. D/ / Daryn Parry MD / Daryn Parry MD Interpreting Provider: Daryn Parry MD Chest CTA 08/02/17 09:00 IMPRESSION: No evidence of pulmonary embolism or acute pulmonary abnormality. Moderate emphysema. Coronary atherosclerosis. D/ / Roscoe Adan MD / Roscoe Adan MD Interpreting Provider: Roscoe Adan MD Active Medications Albuterol/Ipratropium (Duoneb) 3 ml IH [id number] PAUL Stop: 02/01/18 01:01 Last Admin: 08/02/17 07:44 Dose: 3 ml Budesonide/Formoterol Fumarate (Symbicort) 2 puff IH BIDRESP PAUL PRN Reason: Protocol Stop: 02/01/18 01:01 Last Admin: 08/02/17 07:44 Dose: 2 puff Lisinopril/HCTZ (Prinzide 10-12.5) 2 each PO DAILY [facility] Stop: 02/01/18 09:01 Last Admin: 08/02/17 10:30 Dose: 2 each Heparin Sodium (Porcine) (Heparin) 4,000 unit IVP Q6HR PRN PRN Reason: SEE COMMENTS Stop: 02/01/18 00:12 Heparin Sodium (Porcine) (Heparin) 2,000 unit IVP Q6H PRN PRN Reason: SEE COMMENTS Stop: 02/01/18 00:12 Heparin Sodium (Porcine) (Heparin Lock) 500 unit IV ONCE PRN PRN Reason: Port Flush while in RADIOLOGY Stop: 08/04/17 01:26 Diltiazem HCl 125 mg/ Sodium (Chloride) 125 mls @ 5 mls/hr IVC .Q24H PAUL; 5 MG/ HR PRN Reason: Protocol Stop: 01/31/18 20:46 Last Admin: 08/01/17 21:27 Dose: 5 mg/hr, 5 mls/hr Heparin Sodium/Dextrose (Heparin 25,000 Unit/500 Ml D5w) 25,000 unit in 500 mls @ 19.859 mls/hr IVC .Q24H PAUL; 10.7 UNIT/KG/HR PRN Reason: Protocol Stop: 02/01/18 00:16 Last Admin: 08/02/17 03:00 Dose: 10.7 unit/kg/hr, 19.859 mls/hr Azithromycin 500 mg/ Dextrose 250 mls @ 252 mls/hr IVPB Q24H [facility] Stop: 02/01/18 01:01 Last Admin: 08/02/17 01:09 Dose: 252 mls/hr Methylprednisolone (Solu-Medrol) 60 mg IVP Q8HR [facility] Stop: 02/01/18 01:01 Last Admin: 08/02/17 10:31 Dose: 60 mg Naloxone HCl (Narcan) 0.4 mg IVP Q2MIN PRN PRN Reason: SEE COMMENTS Stop: 02/01/18 00:41 Oxycodone/Acetaminophen (Percocet 10/325) 1 each PO QID PRN PRN Reason: Pain Stop: 02/01/18 00:49 - EKG Interpretation EKG results cardiology: personally reviewed (SVT, A-Flutter), other (12 hr tele AVG HR 84, SR) Consult Discharge Plan - Plan Referrals: Michi Gross MD [Primary Care Provider] -
[2017-08-02] MEDS: Diltiazem CD (24hr) 120 MG CAPSULE PO SCH (14:16)
--- NOTE | 2017-08-02 15:16 | Electrocardiograph Report ---
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
--- NOTE | 2017-08-02 15:20 | Electrocardiograph Report ---
[place] [address] Test Date: 2017-08-01 Pat Name: Ronak Levin Department: 104 Room: 2NE22 Gender: M Multimedia Technician: : 1950 Requested By: Kurt Salas Order Number: [id number] Reading MD: Kiara Gao Measurements Intervals [place] Rate: 151 P: [place]: 0 QRS: 98 QRSD: 106 T: 74 QT: 297 QTc: 383 Interpretive Statements SUPRAVENTRICULAR TACHYCARDIA BORDERLINE RIGHT AXIS DEVIATION ABNORMAL RHYTHM ECG Electronically Signed On 08-02-2017 15:18:43 EDT by Kiara Gao
[2017-08-02] MEDS ORDERED: *HR* Rivaroxaban 10 MG TABLET PO SCH (17:00)
[2017-08-03] MEDS: methylPREDNISolone 125 MG/2 ML VIAL IVP SCH ×2 (00:50→09:38)
[2017-08-03] MEDS: Azithromycin 500 MG in D5% in Water 250 ML IVPB SCH (00:50)
[2017-08-03 01:09] LABS: Basophils % 0.1 %; Hematocrit 41.7 % (37.5-50.1); Hemoglobin 13.6 g/dL (12.9-16.9); Lymphocytes # 0.9 K/mcL (0.6-4.6); Lymphocytes % 4.4 %; Mean Corpuscular HGB Conc 32.6 g/dL (31.6-35.5); Mean Corpuscular Hemoglobin 31.2 pg (28.0-33.3); Mean Corpuscular Volume 95.6 fL (83.0-100.0); Mean Platelet Volume 10.1 fL (9.4-12.4); Monocytes # 0.5 K/mcL (0.0-1.3); Monocytes % 2.4 %; Neutrophils # 19.4 K/mcL (1.6-8.9); Platelet Count 280 K/mcL (140-400); Red Blood Count 4.36 M/mcL (4.19-5.50); Red Cell Distribution Width 13.1 % (11.5-14.5); Segmented Neutrophils % 92.1 %
[2017-08-03] MEDS: Heparin 25,000 UNIT/500 ML D5W 25,000 UNIT/500 ML BAG IVC SCH (01:27)
[2017-08-03 01:30] LABS: BUN/Creatinine Ratio 24 (6-26); Blood Urea Nitrogen 19 mg/dL (8-23); Calcium 8.4 mg/dL (8.6-10.3); Carbon Dioxide 29 mEq/L (23-29); Chloride 97 mEq/L (98-107); Glucose 157 mg/dL (70-105); Magnesium 2.2 mg/dL (1.6-2.6); Osmolality,Calculated 282 (280-300); Phosphorous 2.9 mg/dL (2.7-4.5); Potassium 3.9 mEq/L (3.5-5.1); Sodium 133 mEq/L (136-145); eGFR For African Americans > 60 (> 60); eGFR For Non-African Americans > 60 (> 60)
[2017-08-03 03:13] LABS: Activated Partial Thrombo Time 158.2 Seconds (26.0-36.0)
[2017-08-03] MEDS: Ipratropium/Albuterol Neb 3 ML IH SCH ×3 (03:41→11:17)
[2017-08-03] MEDS: Budesonide/Formoterol 160/4.5 MDI IH SCH (07:27)
[2017-08-03 08:08] LABS: BUN/Creatinine Ratio 21 (6-26); Blood Urea Nitrogen 16 mg/dL (8-23); Calcium 8.5 mg/dL (8.6-10.3); Carbon Dioxide 36 mEq/L (23-29); Chloride 99 mEq/L (98-107); Glucose 147 mg/dL (70-105); Magnesium 2.3 mg/dL (1.6-2.6); Osmolality,Calculated 284 (280-300); Potassium 4.2 mEq/L (3.5-5.1); Sodium 135 mEq/L (136-145); eGFR For African Americans > 60 (> 60); eGFR For Non-African Americans > 60 (> 60)
[2017-08-03] MEDS: Diltiazem CD (24hr) 120 MG CAPSULE PO SCH (09:37)
--- NOTE | 2017-08-03 10:38 | Discharge Summary ---
<Jean Sarmiento - Last Filed: 08/03/17 14:52> - NOTES TO OUTPATIENT PROVIDER Notes to Outpatient Provider: Pt presented with newly documented afib rvr. Started Diltiazem, patient is now rate controlled. Continues to have occasional bigeminy with PVCs. May require further cardiac workup. Started on Xarelto Orders not resulted at time of discharge: Pending orders 08/04/17 04:00 Basic Metabolic Panel AM 0400 CBC [Complete Blood Count] [HEME] AM 04008/05/17 04:00 Basic Metabolic Panel AM 0400 CBC [Complete Blood Count] [HEME] AM 0400 08/06/17 04:00 Basic Metabolic Panel AM 0400 CBC [Complete Blood Count] [HEME] AM 0400 08/07/17 04:00 Basic Metabolic Panel AM 0400 CBC [Complete Blood Count] [HEME] AM 0400 08/08/17 04:00 Basic Metabolic Panel AM 0400 CBC [Complete Blood Count] [HEME] AM 0400 Date of Encounter: 08/03/17 Time of Encounter: 08:45 - Discharge Diagnosis (1) Atrial flutter with rapid ventricular response Priority: Primary Status: Acute Assessment and Plan: A. Fib RVR which is newly diagnosed on this admission Troponins negative, Echo shows normal LV EF and function Transitioned to Cardizem PO which successfully rate controls Starting Xarelto for anticoagulation, [id number] Follow-up with EP as outpatient (2) Leukocytosis Priority: Secondary Status: Acute Assessment and Plan: Likely steroid induced, no obvious signs of worsened infection Continue Azithromycin for total 5 day course Qualifiers: Leukocytosis type: unspecified Qualified Code(s): D72.829 - Elevated white blood cell count, unspecified (3) COPD exacerbation Priority: Secondary Status: Acute Assessment and Plan: Finish course of prednisone + Azithromycin Use inhalers as directed (4) HTN (hypertension) Priority: Secondary Status: Acute Assessment and Plan: Continue home medications Qualifiers: Hypertension type: unspecified Qualified Code(s): I10 - Essential (primary ) hypertension (5) Degenerative disc disease Priority: Secondary Status: Acute Assessment and Plan: Continue home pain medications. Qualifiers: Spinal region: mid-cervical Mid-cervical spinal level: unspecified Qualified Code(s): M50.320 - Other cervical disc degeneration, mid-cervical region, unspecified level Hospital course: Mr. Levin is a 67 year old male with history of COPD and HTN who presented to the ED with GU and lower extremity edema x2 days. He was found to have SVT in the ED, which was converted to Afib RVR following adenosine. He was admitted to medicine on a cardizem drip to establish rate control. Today the patient was seen and examined at bedside. He says that his symptoms have pretty much completely resolved, and he's no longer having any trouble breathing. He also says that he is unable to feel palpitations of rapid heart rate. He has no other acute complaints at this time. For detailed history of hospital stay, please see individual assessment and plan. Discharge discussed with: patient, nurse, case management, coding consultant Time spent discussing smoking cessation with patient: more than 10 minutes - Time Spent with Patient Total time spent providing and/or coordinating discharge services: - Discharge Medications Prescriptions: Azithromycin 500 mg PO DAILY 3 Days #6 tablet Diltiazem CD (24hr) [Cardizem CD] 120 mg PO DAILY #30 cap.er.24h predniSONE [Prednisone] 50 mg PO DAILY #3 tablet Rivaroxaban [Xarelto] 20 mg PO 1700 #30 tablet Home Medications: Albuterol Sulfate [Ventolin Hfa] 2 puff IH Q4H PRN 08/01/17 [History] Budesonide/Formoterol 160/4.5 [Symbicort 160/4.5] 2 puff IH BID 08/01/17 [ History] Lisinopril/Hydrochlorothiazide [Zestoretic 20-25 mg Tablet] 1 tab PO DAILY 08/01 [History] Oxycodone HCl/Acetaminophen [Percocet 10-325 mg Tablet] 1 tab PO QID PRN [History] predniSONE [PredniSONE] 15 mg PO DAILY 08/01/17 [History] Azithromycin 500 mg PO DAILY 3 Days #6 tablet 08/03/17 [Rx] Diltiazem CD (24hr) [Cardizem CD] 120 mg PO DAILY #30 cap.er.24h 08/03/17 [Rx] Rivaroxaban [Xarelto] 20 mg PO 1700 #30 tablet 08/03/17 [Rx] predniSONE [Prednisone] 50 mg PO DAILY #3 tablet 08/03/17 [Rx] Allergies/Adverse Reactions: 3 Allergy/AdvReac Type Severity Reaction Status Date / Time Penicillins AdvReac Anaphylaxis Verified 08/01/17 20:58 Date of admission: 08/01/17 22:37 Primary care physician: Michi Gross MD Consults: 08/02/17 10:43 Consult to Cardiology [CONS] Routine Comment: Consulting Provider: Cardiology Fox Reason for Consult: atrail flutter with RVR Call Completed: Yes Discharging clinician: Jean Sarmiento Anticipated date of discharge: 08/03/17 - Constitutional Vitals: Temp Pulse Resp BP Pulse Ox 97.8 F 86 22 115/68 92 08/03/17 06:38 08/03/17 06:38 08/03/17 07:27 08/03/17 06:38 08/03/17 07:27 General appearance: Present: A&O X 3, no acute distress - Patient Status Disposition: Home, Self-Care Condition: Good Functional capacity at discharge: independent ambulation Overall status at discharge: patient is back to baseline - Discharge Instructions Instructions: Diltiazem (By mouth), Prednisone (By mouth), Azithromycin (By mouth), Rivaroxaban (By mouth), Atrial Flutter (DC), Chronic Obstructive Pulmonary Disease (DC) Follow Up With: Michi Gross MD [Primary Care Provider] - 08/06/17 3:45 pm Additional Instructions: Follow-up with primary care early next week Continue cardizem cd 120mg daily, keep log of daily HRs Continue Xarelto as directed Return to the ED for new chest pain, shortness of breath, changes in level of consciousness We electronically sent all your prescriptions to [facility]. Continue your home oxygen as previously. - Diet and Activity Activity: increase activity as tolerated <Sarthak Hanks - Last Filed: 08/03/17 15:31> Date of Encounter: 08/03/17 - Discharge Diagnosis (1) Atrial flutter with rapid ventricular response Status: Acute (2) Leukocytosis Status: Acute Qualifiers: Leukocytosis type: unspecified Qualified Code(s): D72.829 - Elevated white blood cell count, unspecified (3) COPD exacerbation Status: Acute (4) HTN (hypertension) Status: Acute Qualifiers: Hypertension type: unspecified Qualified Code(s): I10 - Essential (primary ) hypertension (5) Degenerative disc disease Status: Acute Qualifiers: Spinal region: mid-cervical Mid-cervical spinal level: unspecified Qualified Code(s): M50.320 - Other cervical disc degeneration, mid-cervical region, unspecified level Hospital course: Mr. Levin is a 67 year old male - Time Spent with Patient Total time spent providing and/or coordinating discharge services: Greater than 30 minutes Date of admission: 08/01/17 22:37 Primary care physician: Michi Gross MD Consults: 08/02/17 10:43 Consult to Cardiology [CONS] Routine Comment: Consulting Provider: Cardiology Erin Reason for Consult: atrail flutter with RVR Call Completed: Yes - Constitutional Vitals: Temp Pulse Resp BP Pulse Ox 97.8 F 88 16 125/77 93 08/03/17 11:54 08/03/17 11:54 08/03/17 11:54 08/03/17 11:54 08/03/17 11:54 - Attending Attestation I examined this patient and my medical decision-making was reviewed with the Resident Physician on 08/03/17. I agree with the documented findings, disposition and treatment plan as described except to the extent set forth below. Admitted for new onset Afib with RVR and COPDE. Clinically stable, may be discharged on a/b, steroids, CCB, Xarelto. NO new complains and exam and labs unremarkable. Rest as in the resident physician's documentation.
[2017-08-03 11:55] VITALS: BP 125/77
[2017-08-03] MEDS ORDERED: *HR* Adenosine 6 MG/2 ML SYRINGE IVP ONE (15:22)
== END 2017-08-03 15:23 | disposition home or self-care (01) ==
LOC: 2NENU 20:00 → EMEROO 20:00 → 2NENU 23:48
PROVIDERS: ADMIT Pediatrics; ATTEND Pediatrics

== ENCOUNTER 2018-01-02 18:35 | Observation (INO) ==
--- NOTE | 2018-01-02 19:03 | Emergency Department Note ---
Disposition Clinical Impression: Palpitations, Atrial fibrillation Disposition: Admitted As Inpatient Condition: Fair Referrals: Michi Gross MD [Primary Care Provider] - Forms: ED Satisfaction Letter General Adult HPI - General Chief complaint: ED Arrhythmia/Palpitations Stated complaint: HHR Time Seen by Provider: 01/02/18 18:43 Source: family Limitations: no limitations Nursing Notes Reviewed: Yes Vital Signs Reviewed: Yes - History of Present Illness Pain Scale: 0 - Related Data Home Medications Medication Instructions Recorded Confirmed Albuterol Sulfate [Ventolin Hfa] 2 puff IH Q4H PRN 08/01/17 01/02/18 Budesonide/Formoterol 160/4.5 2 puff IH BID 08/01/17 01/02/18 [Symbicort 160/4.5] Lisinopril/Hydrochlorothiazide 1 tab PO DAILY 08/01/17 01/02/18 [Zestoretic 20-25 mg Tablet] Oxycodone HCl/Acetaminophen 1 tab PO QID PRN 08/01/17 01/02/18 [Percocet 10-325 mg Tablet] Bumetanide [Bumetanide] 0.5 mg PO DAILY 01/02/18 01/02/18 Metoprolol [Lopressor] 25 mg PO BID 01/02/18 01/02/18 Previous Rx's Medication Instructions Recorded Diltiazem CD (24hr) [Cardizem CD] 120 mg PO DAILY #30 cap.er.24h 08/03/17 Rivaroxaban [Xarelto] 20 mg PO 1700 #30 tablet 08/03/17 Allergies Allergy/AdvReac Type Severity Reaction Status Date / Time Penicillins AdvReac Anaphylaxis Verified 08/01/17 20:58 Past Medical History - Past Medical History Medical history: Reports: atrial fibrillation, COPD, hypertension Surgical history: Reports: non-contributory Psychiatric history: Reports: no psych history - Social History Smoking Status: Former smoker Smokeless Tobacco Status: No Alcohol use: Reports: none Drug use: Reports: none Physical Exam - General Limitations: no limitations General appearance: alert, in no apparent distress Course Vital Signs Temperature 99.1 F 01/02/18 18:38 Pulse Rate 153 01/02/18 18:38 Respiratory Rate 18 01/02/18 18:38 Blood Pressure 102/70 01/02/18 18:38 O2 Sat by Pulse Oximetry 94 01/02/18 18:38 Temperature 99.1 F 01/02/18 18:46 Pulse Rate 96 01/02/18 19:40 Respiratory Rate 19 01/02/18 19:40 Blood Pressure 83/72 01/02/18 19:40 O2 Sat by Pulse Oximetry 92 01/02/18 19:40 Oxygen Delivery Oxygen Delivery Room Air Medical Decision Making - MDM Narrative Medical decision making narrative: Chest X-Ray 01/02/18 18:42 IMPRESSION: No acute pulmonary process. D/ / Sanket Zhou / Sanket Zhou Interpreting Provider: Sanket Zhou 2030 hrs.: Patient's heart rate is down in the 90s. Blood pressure is better. We spoke with hospitalist and admitted him into the hospital. We will touch base with cardiology also. Impression is atrial fibrillation with rapid ventricular response. - Lab Data Result diagrams: 01/02/18 18:51 01/02/18 18:51 Lab Results 01/02/18 01/02/18 01/02/18 Range/Units 18:51 18:51 18:58 WBC 17.2 H (4.3-11.1) K/mcL RBC 4.79 (4.19-5.50) M/mcL Hgb 15.0 (12.9-16.9) g/dL Hct 46.5 (37.5-50.1) % MCV 97.1 (83.0-100.0) fL MCH 31.3 (28.0-33.3) pg MCHC 32.3 (31.6-35.5) g/dL RDW 13.2 (11.5-14.5) % Plt Count 311 (140-400) K/mcL MPV 9.6 (9.4-12.4) fL Immature Gran % 1.6 (0-4) % Seg Neutrophils % 80.6 % Lymphocytes % 9.2 % Monocytes % 7.4 % Eosinophils % 0.6 % Basophils % 0.6 % Neutrophils # 13.9 H (1.6-8.9) K/mcL Lymphocytes # 1.6 (0.6-4.6) K/mcL Monocytes # 1.3 (0.0-1.3) K/mcL Eosinophils # 0.1 (0.0-0.6) K/mcL Basophils # 0.1 (0.0-0.2) K/mcL Sodium 134 L (136-145) mEq/L Potassium 4.0 (3.5-5.1) mEq/L Chloride 94 L (98-107) mEq/L Carbon Dioxide 31 H (23-29) mEq/L BUN 17 (8-23) mg/dL Creatinine 0.87 (0.70-1.30) mg/dL Est GFR ( Amer) > 60 (> 60) Est GFR (Non-Af Amer) > 60 (> 60) BUN/Creatinine Ratio 20 (6-26) Glucose 131 H (70-105) mg/dL Calculated Osmolality 281 (280-300) Calcium 8.7 (8.6-10.3) mg/dL Phosphorus 2.9 (2.7-4.5) mg/dL Magnesium 2.2 (1.6-2.6) mg/dL Troponin I < 0.03 (< 0.04) ng/mL B-Natriuretic Peptide 27 (Less than 100) pg/mL TSH 1.827 (0.340-5.600) mcIU/mL Critical Care Time Critical Care Time: Yes Total Critical Care Time: 34 Attestation: Excluding any separately billable procedures. Attestation Statement - Attestation Attestation: This documentation is done with the assistance of Dragon dictation. Despite efforts made to ensure accuracy, there may be inaccuracies in quality analyst or spelling and typographical errors. I examined this patient and my medical decision-making was reviewed with the Resident Physician. I agree with the documented findings, disposition and treatment plan as described except to the extent set forth below. Patient seen and evaluated on arrival with Dr. oG and myself, I agree with his evaluation and management plan, I supervised the care the patient's stay. Patient presents today with rapid heart rate atrial fib. Happened before about 6 months ago. He is on Xarelto. Sees Dr. Ronak Mojica for cardiology. No chest pain. He thinks is been going on today, his thinks been going on more than a day. Were going to do EKG cardiac workup and then he will then get started on Cardizem her beta becki to slow the heart rate down and he will need admission. He is in agreement with this plan.
[2018-01-02] MEDS ORDERED: *HR* Metoprolol 5 MG/5 ML VIAL IVP ONE (19:05)
[2018-01-02 19:18] LABS: Basophils # 0.1 K/mcL (0.0-0.2); Basophils % 0.6 %; Eosinophils # 0.1 K/mcL (0.0-0.6); Eosinophils % 0.6 %; Hematocrit 46.5 % (37.5-50.1); Immature Granulocytes % 1.6 % (0-4); Lymphocytes # 1.6 K/mcL (0.6-4.6); Lymphocytes % 9.2 %; Mean Corpuscular HGB Conc 32.3 g/dL (31.6-35.5); Mean Corpuscular Hemoglobin 31.3 pg (28.0-33.3); Mean Corpuscular Volume 97.1 fL (83.0-100.0); Mean Platelet Volume 9.6 fL (9.4-12.4); Monocytes # 1.3 K/mcL (0.0-1.3); Monocytes % 7.4 %; Neutrophils # 13.9 K/mcL (1.6-8.9); Platelet Count 311 K/mcL (140-400); Red Blood Count 4.79 M/mcL (4.19-5.50); Red Cell Distribution Width 13.2 % (11.5-14.5); Segmented Neutrophils % 80.6 %
--- NOTE | 2018-01-02 19:37 | Emergency Department Note ---
Disposition Clinical Impression: Palpitations Atrial fibrillation Qualifiers: Atrial fibrillation type: unspecified Qualified Code(s): I48.91 - Unspecified atrial fibrillation Disposition: Admitted As Inpatient Condition: Fair Referrals: Michi Gross MD [Primary Care Provider] - Forms: ED Satisfaction Letter Time of Disposition: 20:20 Arrhythmia/Palpitations HPI - General Chief Complaint: ED Arrhythmia/Palpitations Stated Complaint: HHR Time Seen by Provider: 01/02/18 18:43 Source: family Mode of arrival: ambulatory Limitations: no limitations Nursing Notes Reviewed: Yes Vital Signs Reviewed: Yes - History of Present Illness HPI Narrative: Patient presented with high heart rate. States he has a history of A. fib and is on Xarelto. He is on metoprolol and Cardizem. Sees Dr. Mojica with cardiology. States he checked his heart rate. Because he felt like it was fluttering and it was in the 150s. States it made him feel a little short of breath and some twinges of chest pain with it. No history of stents or bypasses. Denies any headache, changes in vision, numbness, weakness, tingling , abdominal pain, nausea, vomiting or diarrhea. - Related Data Home Medications Medication Instructions Recorded Confirmed Albuterol Sulfate [Ventolin Hfa] 2 puff IH Q4H PRN 08/01/17 01/02/18 Budesonide/Formoterol 160/4.5 2 puff IH BID 08/01/17 01/02/18 [Symbicort 160/4.5] Lisinopril/Hydrochlorothiazide 1 tab PO DAILY 08/01/17 01/02/18 [Zestoretic 20-25 mg Tablet] Oxycodone HCl/Acetaminophen 1 tab PO QID PRN 08/01/17 01/02/18 [Percocet 10-325 mg Tablet] Bumetanide [Bumetanide] 0.5 mg PO DAILY 01/02/18 01/02/18 Metoprolol [Lopressor] 25 mg PO BID 01/02/18 01/02/18 Previous Rx's Medication Instructions Recorded Diltiazem CD (24hr) [Cardizem CD] 120 mg PO DAILY #30 cap.er.24h 08/03/17 Rivaroxaban [Xarelto] 20 mg PO 1700 #30 tablet 08/03/17 Allergies Allergy/AdvReac Type Severity Reaction Status Date / Time Penicillins AdvReac Anaphylaxis Verified 08/01/17 20:58 Review of Systems: As reviewed in the HPI. All other systems reviewed are negative or normal. Past Medical History - Past Medical History Attestation: Yes The following information was validated with the patient. Source: patient Medical history: Reports: atrial fibrillation, COPD, hypertension Surgical history: Reports: non-contributory Psychiatric history: Reports: no psych history - Social History Smoking Status: Former smoker Smokeless Tobacco Status: No Alcohol use: Reports: none Drug use: Reports: none Physical Exam CONSTITUTIONAL: [well appearing, alert and in no acute distress] EYES: [EOMI, clear conjunctiva, PERRLA] HENT: [Normocephalic, atraumatic, moist mucus membranes, normal oropharynx] NECK: [normal inspection, full ROM, trachea midline, no obvious swelling] PULMONARY: [normal lung sounds bilaterally, normal chest rise and fall, no respiratory distress or stridor, no wheezes, no rales, no rhonchi CARDIOVASCULAR: [Tachycardic, irregular rhythm, normal heart sounds, no murmurs , distal extremities are warm and well perfused] GASTROINSTESTINAL: [soft, non-tender, non-rigid, non-distended, no guarding, no rebound, normal bowel sounds] GENITOURINARY/RECTAL: [deferred] NEUROLOGIC: [Alert, oriented x3, normal speech, moves all extremities] EXTREMITIES: [Normal inspection, full ROM, no tenderness, no pedal edema, normal capillary refill] MUSCULOSKELETAL: [no gross deformities, atraumatic] SKIN: [No cyanosis, no diaphoresis, normal color, warm, no rash] PSYCHIATRIC: [normal mood and affect] - General Limitations: no limitations General appearance: alert, in no apparent distress Course Course Narrative: Patient presenting with A. fib with RVR. We will give him Cardizem and reevaluate. - Reevaluation(s) Reevaluation #1: Patient did convert after IV Cardizem. He does state that he took 60 mg at home prior to coming in. Patient is slightly hypotensive. Spoke with cardiology. Would like him admitted overnight. Reevaluation #2: Patient admitted. Vital Signs Temperature 99.1 F 01/02/18 18:38 Pulse Rate 153 10/10/18 18:38 Respiratory Rate 18 01/02/18 18:38 Blood Pressure 102/70 01/02/18 18:38 O2 Sat by Pulse Oximetry 94 01/02/18 18:38 Temperature 99.1 F 01/02/18 18:46 Pulse Rate 96 01/02/18 19:40 Respiratory Rate 19 01/02/18 19:40 Blood Pressure 83/72 01/02/18 19:40 O2 Sat by Pulse Oximetry 92 01/02/18 19:40 Oxygen Delivery Oxygen Delivery Room Air Arrhythmia/Palpitations - Medical Records Medical records reviewed: Yes I reviewed the patient's medical records. - Lab Data Lab results reviewed: Yes I reviewed the patient's lab results. Result diagrams: 01/02/18 18:51 01/02/18 18:51 Lab Results 01/02/18 01/02/18 01/02/18 Range/Units 18:51 18:51 18:58 WBC 17.2 H (4.3-11.1) K/mcL RBC 4.79 (4.19-5.50) M/mcL Hgb 15.0 (12.9-16.9) g/dL Hct 46.5 (37.5-50.1) % MCV 97.1 (83.0-100.0) fL MCH 31.3 (28.0-33.3) pg MCHC 32.3 (31.6-35.5) g/dL RDW 13.2 (11.5-14.5) % Plt Count 311 (140-400) K/mcL MPV 9.6 (9.4-12.4) fL Immature Gran % 1.6 (0-4) % Seg Neutrophils % 80.6 % Lymphocytes % 9.2 % Monocytes % 7.4 % Eosinophils % 0.6 % Basophils % 0.6 % Neutrophils # 13.9 H (1.6-8.9) K/mcL Lymphocytes # 1.6 (0.6-4.6) K/mcL Monocytes # 1.3 (0.0-1.3) K/mcL Eosinophils # 0.1 (0.0-0.6) K/mcL Basophils # 0.1 (0.0-0.2) K/mcL Sodium 134 L (136-145) mEq/L Potassium 4.0 (3.5-5.1) mEq/L Chloride 94 L (98-107) mEq/L Carbon Dioxide 31 H (23-29) mEq/L BUN 17 (8-23) mg/dL Creatinine 0.87 (0.70-1.30) mg/dL Est GFR ( Amer) > 60 (> 60) Est GFR (Non-Af Amer) > 60 (> 60) BUN/Creatinine Ratio 20 (6-26) Glucose 131 H (70-105) mg/dL Calculated Osmolality 281 (280-300) Calcium 8.7 (8.6-10.3) mg/dL Phosphorus 2.9 (2.7-4.5) mg/dL Magnesium 2.2 (1.6-2.6) mg/dL Troponin I < 0.03 (< 0.04) ng/mL B-Natriuretic Peptide 27 (Less than 100) pg/mL TSH 1.827 (0.340-5.600) mcIU/mL - Radiology Data Radiology results reviewed: Yes I reviewed the patient's radiology results. - EKG Data EKG attestation: Yes I reviewed and interpreted this EKG. EKG results narrative: A. fib, rate 150, normal axis, no acute ischemic changes
[2018-01-02 19:40] LABS: BUN/Creatinine Ratio 20 (6-26); Blood Urea Nitrogen 17 mg/dL (8-23); Calcium 8.7 mg/dL (8.6-10.3); Carbon Dioxide 31 mEq/L (23-29); Chloride 94 mEq/L (98-107); Glucose 131 mg/dL (70-105); Osmolality,Calculated 281 (280-300); Sodium 134 mEq/L (136-145); Troponin I < 0.03 ng/mL (< 0.04); eGFR For Non-African Americans > 60 (> 60)
[2018-01-02 19:54] LABS: Thyroid Stimulating Hormone 1.827 mcIU/mL (0.340-5.600)
[2018-01-02 20:09] LABS: Magnesium 2.2 mg/dL (1.6-2.6); Phosphorous 2.9 mg/dL (2.7-4.5)
[2018-01-02] MEDS ORDERED: Naloxone 0.4 MG/ML INJ IVP PRN (20:26)
[2018-01-02] MEDS ORDERED: 0.9 % Sodium Chloride 1,000 ML ONE (20:32)
[2018-01-02] MEDS: 0.9 % Sodium Chloride 1,000 ML IVC SCH ×2 (20:35→22:18)
[2018-01-02 20:47] LABS: Bilirubin,Urine Negative (Negative); Blood,Urine Negative (Negative); Clarity,Urine Clear (Clear); Color,Urine Yellow (Yellow); Glucose,Urine (UA) Normal (Normal); Ketones,Urine Negative (Negative); Leukocyte Esterase,Urine Negative (Negative); Nitrite,Urine Negative (Negative); PH,Urine 7.5 pH Units (5.0-8.0); Protein,Urine Negative (Neg-Trace); Specific Gravity,Urine 1.011 (1.010-1.025); Urobilinogen,Urine Normal (Normal)
--- NOTE | 2018-01-02 21:00 | Internal Med History&Physical ---
Date of Encounter: 01/03/18 Time of Encounter: 22:00 Internal Medicine - H&P: HPI Chief complaint: Palpatations History of present illness: Mr. Levin is a 67 year old male with a past medical history of COPD on 2 L of oxygen at night, degenerative disc disease, hypertension, osteoarthritis and recent admission back in September for atrial flutter with rapid ventricular response rate controlled on anticoagulation who presents with palpitations. Patient is currently on metoprolol and Cardizem and is currently being seen by Dr. Mojica with cardiology. Patient checked his heart rate earlier today when he noted fluttering in his chest. Heart rate was found to be in the 150s. He did note associated shortness of breath and some twinges of chest pain. Denies any headache, changes in vision, numbness, weakness, tingling, abdominal pain, nausea, vomiting or diarrhea.Patient had a previous workup including a cardiac stress test and which was negative for ischemia baseline sinus rhythm with occasional PVCs and 28 days of cardiac monitoring which showed baseline sinus rhythm with occasional PVCs. Last echo performed was in July 2017 which showed a left ventricular ejection fraction of 65% with mild LV diastolic dysfunction, normal right ventricle and [id number] aortic stenosis. EKG was unremarkable with negative troponins. Past Med Surg Social Fam HX - Past Medical History Medical history: atrial fibrillation, COPD, hypertension Psychiatric history: no psych history - Past Surgical History Surgical History: non-contributory Additional surgical history: heart cath no stents - Social History Smoking Status: Former smoker Smokeless Tobacco Status: No Alcohol use: none Drug use: none Internal Medicine - H&P: Meds Albuterol Sulfate [Ventolin Hfa] 2 puff IH Q4H PRN 08/01/17 [History] Budesonide/Formoterol 160/4.5 [Symbicort 160/4.5] 2 puff IH BID 08/01/17 [ History] Lisinopril/Hydrochlorothiazide [Zestoretic 20-25 mg Tablet] 1 tab PO DAILY 08/01 [History] Oxycodone HCl/Acetaminophen [Percocet 10-325 mg Tablet] 1 tab PO QID PRN [History] Diltiazem CD (24hr) [Cardizem CD] 120 mg PO DAILY #30 cap.er.24h 08/03/17 [Rx] Rivaroxaban [Xarelto] 20 mg PO 1700 #30 tablet 08/03/17 [Rx] Bumetanide [Bumetanide] 0.5 mg PO DAILY 01/02/18 [History] Metoprolol [Lopressor] 25 mg PO BID 01/02/18 [History] 3 Allergy/AdvReac Type Severity Reaction Status Date / Time Penicillins AdvReac Anaphylaxis Verified 08/01/17 20:58 All Systems PM: A 10-system review of systems was performed and is negative for pertinent findings except as documented above in the HPI. - Constitutional Vitals: Temp Pulse Resp BP Pulse Ox 99.1 F 100 16 115/71 91 01/02/18 18:46 01/02/18 20:34 01/02/18 20:34 01/02/18 20:34 01/02/18 20:34 Exam: General: Alert and oriented Skin:Normal color, no rash, no lesions. HEENT:EOM, pupils equal, round and reactive. Cardiovascular:Normal S1 & S2, no rubs, murmurs or gallops. No JVD. Pulse regular. Lungs:Normal breath sounds, no wheezes or crackles. Abdomen:Soft, non-tender, no rigidity. Extremities:No deformity, no edema or tenderness, no joint swelling or clubbing. Neurological:Normal cognition and motor skills. Pulses:Carotid and radial pulses normal +2. Rest of the physical exam is non contributory Internal Med - H&P Results - Labs CBC & Chem 7: 01/03/18 01:01 01/03/18 01:01 - Assessment and plan (1) Atrial flutter with rapid ventricular response Current Visit: Yes Status: Acute Assessment and plan: Patient with recent episode of reported A. fib with RVR. Found to have a heart rate in the 150s. Patient apparently had taken 60 mg of Cardizem at home prior to admission administration of 20 mg IV push in the ED. Rate currently controlled however patient remains hypo-tensive. Repeat EKG shows what appears to be atrial flutter with 4-1 conduction with a ventricular rate of 82 bpm. Patient's corporate compliance officer Dr. Mojica on board will see patient in the morning. We will continue with rate control. Patient currently on anticoagulation for A. fib. Repeat electrolytes in the morning. (2) Atrial fibrillation with rapid ventricular response Current Visit: Yes Status: Acute (3) Palpitations Current Visit: Yes Status: Acute Assessment and plan: Palpitations secondary to what appears to be atrial flutter with 4:1 conduction now rate controlled on Xarelto. Patient currently asymptomatic. Denies any chest pain. (4) Chest discomfort Current Visit: Yes Status: Acute Assessment and plan: Chest discomfort in setting of palpitations. No reported findings of ST or T- wave changes on EKG reviewed initial troponin negative. We will trend troponin for now. (5) HTN (hypertension) Current Visit: No Status: Acute Assessment and plan: History of hypertension. Patient hypotensive in the setting of by mouth and IV Cardizem. We will start patient on maintenance fluids after bolus. Qualifiers: Hypertension type: essential hypertension Qualified Code(s): I10 - Essential (primary) hypertension (6) Leukocytosis Current Visit: No Status: Acute Assessment and plan: Elevated white blood cell count of 17. Patient reports recent symptoms of of a resolving upper respiratory tract infection. Patient also reportedly states he takes a low dose of prednisone possibly 5 mg. We will monitor for now. No other source of infection at this time. Patient denies any fever, chills, nausea, vomiting. Qualifiers: Leukocytosis type: unspecified Qualified Code(s): D72.829 - Elevated white blood cell count, unspecified (7) COPD exacerbation Current Visit: Yes Status: Acute Assessment and plan: History of COPD on home oxygen 2 L at night now with Expiratory wheezes appreciated on lung examination concerning for mild COPD exacerbation. Patient reports putting on scheduled home dose of 5 mg of prednisone daily. We will start on scheduled DuoNeb's every 6 hours. Short course of Solu-Medrol. Blood glucose checks; insulin sliding scale.. (8) DVT prophylaxis Current Visit: No Status: Acute Assessment and plan: Patient currently currently on Xarelto - Time Spent With Patient Total time spent is greater than 50% in coordination of care (as documented) at patient's floor/unit and/or counseling patient:
[2018-01-02] MEDS ORDERED: Dextrose Gel 15 GM/37.5 ML TUBE PO PRN ×2 (23:10)
[2018-01-02] MEDS ORDERED: *HR* Dextrose 50 % in Water (Syg) 50 ML SYRINGE IVP PRN (23:10)
[2018-01-02] MEDS ORDERED: D5% in Water 1,000 ML IVC PRN (23:10)
[2018-01-02] MEDS: Ipratropium/Albuterol Neb 3 ML IH SCH (23:43)
[2018-01-02] MEDS: Budesonide/Formoterol 160/4.5 1 PUFF INH IH SCH (23:44)
[2018-01-03] MEDS ORDERED: Insulin LISPRO 300 UNITS/3 ML VIAL SQ SCH
[2018-01-03] MEDS: Insulin LISPRO 300 UNITS/3 ML VIAL SQ SCH ×5 (00:18→21:30)
[2018-01-03] MEDS: MethylPREDNISolone 40 MG/ML VIAL IVP SCH ×4 (00:19→16:58)
[2018-01-03 01:15] LABS: Basophils # 0.1 K/mcL (0.0-0.2); Basophils % 0.6 %; Eosinophils # 0.2 K/mcL (0.0-0.6); Eosinophils % 1.2 %; Hematocrit 40.8 % (37.5-50.1); Hemoglobin 13.6 g/dL (12.9-16.9); Immature Granulocytes % 1.8 % (0-4); Lymphocytes # 2.6 K/mcL (0.6-4.6); Lymphocytes % 17.1 %; Mean Corpuscular HGB Conc 33.3 g/dL (31.6-35.5); Mean Corpuscular Hemoglobin 31.8 pg (28.0-33.3); Mean Corpuscular Volume 95.3 fL (83.0-100.0); Monocytes # 1.4 K/mcL (0.0-1.3); Monocytes % 9.5 %; Neutrophils # 10.5 K/mcL (1.6-8.9); Platelet Count 274 K/mcL (140-400); Red Blood Count 4.28 M/mcL (4.19-5.50); Red Cell Distribution Width 13.7 % (11.5-14.5); Segmented Neutrophils % 69.8 %
[2018-01-03 01:36] LABS: Alanine Aminotransferase 15 Units/L (7-52); Albumin 3.1 g/dL (3.5-5.7); Albumin/Globulin Ratio 1.6 (1.1-2.2); Alkaline Phosphatase 65 Units/L (34-104); Aspartate Amino Transferase 13 Units/L (13-39); BUN/Creatinine Ratio 19 (6-26); Bilirubin,Total 0.3 mg/dL (0.3-1.0); Blood Urea Nitrogen 15 mg/dL (8-23); Calcium 8.3 mg/dL (8.6-10.3); Carbon Dioxide 32 mEq/L (23-29); Chloride 100 mEq/L (98-107); Glucose 113 mg/dL (70-105); Magnesium 2.3 mg/dL (1.6-2.6); Osmolality,Calculated 286 (280-300); Potassium 3.6 mEq/L (3.5-5.1); Sodium 137 mEq/L (136-145); Total Protein 5.1 g/dL (6.4-8.9); eGFR For Non-African Americans > 60 (> 60)
[2018-01-03] MEDS: Ipratropium/Albuterol Neb 3 ML IH SCH ×4 (04:15→21:36)
[2018-01-03] MEDS ORDERED: Diltiazem CD (24hr) 120 MG CAPSULE PO SCH (09:00)
--- NOTE | 2018-01-03 09:20 | Cardiology Consult Note ---
Date of Encounter: 01/03/18 Time of Encounter: 08:50 Assessment and Plan (1) Atrial flutter with rapid ventricular response Current Visit: Yes Status: Acute Heart rate in 150s on admission. EKG with atrial fluter with 4:1 conduction Now sinus rhythm s/p IV and oral cardizem. Rate controlled. Xarelto discontinued 1 month ago as 28 day monitoring analyst showed sinus rhythm with occasional PVCs. Follows up with Dr. Ronak Morrow. Next appointment is in January. Stress test August 2017 with no ischemia. Echo July 2017 with LVEF 65% wih mild left LV diastolic dysfunction, mild- moderate aortic stenosis. Repeat EKG now that patient is in sinus rhythm. Resume Xarelto. Continue with PO Cardizem and Lopressor. Cardiac monitoring. Code(s): I48.92 - Unspecified atrial flutter (2) HTN (hypertension) Current Visit: No Status: Acute Patient was hypotensive while in the ER. Received IV and oral cardizem and this may have been contributing. Now normotensive s/p IV fluid boluses. Monitor. Qualifiers: Hypertension type: essential hypertension Qualified Code(s): I10 - Essential (primary) hypertension (3) COPD exacerbation Current Visit: Yes Status: Acute On 2L O2 per NC at home. Management per Medicine service Code(s): J44.1 - Chronic obstructive pulmonary disease with (acute) exacerbation Discussion w patient/family: The assessment and plan as outlined above was discussed with the patient and/or family members who expressed understanding and agreement. All questions were answered. Thank you for involving us in the care of your patient. Please call with any questions. History of Present Illness Consult date: 01/02/18 Requesting physician: Javier Go Consult reason: A-fib with RVR Chief complaint: palpitations History of present illness: Mr. Levin is a 67 year old male with past medical history including atrial fibrillation rate control with metoprolol and cardizem, COPD, hypertension, who presents with a chief complaint of palpitations that started at noon yesterday. Patient states he was overall not feeling well yesterday morning. Around noon the patient was sitting and suddenly felt his heart fluttering. He complains of lightheadedness and some shortness of breath. He notes occasional left sided chest pain that last seconds with the palpitations. He had a numb feeling in his left arm. He eventually checked his heart rate which was in the 160s. He states he has been off his xarelto for a month as his 28 day monitoring analyst showed no atrial fibrillation/flutter and he took a dose of it at home and an extra cardizem. He went to the ER and his heart rate was in atrial fibrillation with heart rate the 150s. He received IV cardizem and was hypotensive. He also received IV fluids. Repeat EKG was obtained after heart rate improved to the 70s -80s and showed atrial flutter with 4:1 conduction block and rate of 82. Rate is controlled on cardizem 120mg and receiving xarelto. Cardiology consulted for further evaluation and management. At present, patient denies chest pain, shortness of breath, lightheadedness, weakness, or any other complaints. Patient had a similar episode in August 2017 and Stress test was negative for ischemia. Echocardiogram in July 2017 showed LVEF 60% with mild left LV diastolic dysfunction and mild-moderate aortic stenosis. Past Med Surg Social Fam HX - Past Medical History Medical history: atrial fibrillation, COPD, hypertension Psychiatric history: no psych history - Past Surgical History Surgical History: non-contributory Additional surgical history: heart cath no stents - Social History Smoking Status: Former smoker Smokeless Tobacco Status: No Alcohol use: none Drug use: none Medications and Allergies Albuterol Sulfate [Ventolin Hfa] 2 puff IH Q4H PRN 08/01/17 [History] Budesonide/Formoterol 160/4.5 [Symbicort 160/4.5] 2 puff IH BID 08/01/17 [ History] Lisinopril/Hydrochlorothiazide [Zestoretic 20-25 mg Tablet] 1 tab PO DAILY 08/01 [History] Oxycodone HCl/Acetaminophen [Percocet 10-325 mg Tablet] 1 tab PO QID PRN [History] Diltiazem CD (24hr) [Cardizem CD] 120 mg PO DAILY #30 cap.er.24h 08/03/17 [Rx] Rivaroxaban [Xarelto] 20 mg PO 1700 #30 tablet 08/03/17 [Rx] Bumetanide [Bumetanide] 0.5 mg PO DAILY 01/02/18 [History] Metoprolol [Lopressor] 25 mg PO BID 01/02/18 [History] 3 Allergy/AdvReac Type Severity Reaction Status Date / Time Penicillins AdvReac Anaphylaxis Verified 08/01/17 20:58 All Systems Review: The remainder of the systems were reviewed and are negative - Constitutional Constitutional: no headache(s), no weakness - EENT Eyes: no blurred vision, no loss of vision Nose, mouth and throat: no dysphagia, no sore throat - Cardiovascular Cardiovascular: irregular heart rhythm, leg edema, lightheadedness, palpitations , rapid heart rate - Respiratory Respiratory: dyspnea, no cough - Gastrointestinal Gastrointestinal: no abdominal pain, no nausea - Genitourinary Genitourinary: no dysuria - Musculoskeletal Musculoskeletal: no muscle weakness, no myalgias - Integumentary Integumentary: no rash - Neurological Neurological: no dizziness, no numbness, no tingling Physical Examination Vital Signs, Last 4 Hours Temp Pulse Resp BP Pulse Ox 01/03/18 07:11 98.0 F 105 18 121/69 96 General: Conversant, No Apparent Distress HEENT: Atraumatic, Normocephaly Neck: No JVD, Normal carotid pulses Cardiac: Reg Rate and Rhythm, Normal S1 and S2, No Murmur Lungs: Normal Breath Sounds, Other (mild expiratory wheezes bilaterally. No crackles or rales.) Neuro: Alert and responsive, No focal deficits noted Abdomen: Soft, Non-Tender Skin: No rashes noted on visualized skin Musculoskeletal: No Chest Wall Tenderness Extremities: No Cyanosis, Normal Pulses (bilateral radial and dorsalis pedis pulses equal), Other (Bilateral 1+ edema at the ankles) Results 01/03/18 01:01 01/03/18 01:01 Lab Results 01/03/18 01/03/18 01/03/18 01:01 01:01 01:01 WBC 15.0 H Hgb 13.6 Hct 40.8 Plt Count 274 Sodium 137 Potassium 3.6 Chloride 100 Carbon Dioxide 32 H BUN 15 Creatinine 0.80 Glucose 113 H Calcium 8.3 L Magnesium 2.3 Total Bilirubin 0.3 AST 13 ALT 15 Alkaline Phosphatase 65 Troponin I < 0.03 01/03/18 07:06 WBC Hgb Hct Plt Count Sodium Potassium Chloride Carbon Dioxide BUN Creatinine Glucose Calcium Magnesium Total Bilirubin AST ALT Alkaline Phosphatase Troponin I < 0.03 - Imaging and Cardiology Chest Xray: report reviewed - EKG Interpretation EKG results cardiology: personally reviewed (EKG on 01/02/2018 at 20:10 reviewed showed atrial fluttter with atrial rate 319 and heart rate 96, 4:[address] elevations noted.) Consult Discharge Plan - Plan Referrals: Michi Gross MD [Primary Care Provider] -
[2018-01-03] MEDS: Budesonide/Formoterol 160/4.5 1 PUFF INH IH SCH ×2 (10:50→21:36)
--- NOTE | 2018-01-03 15:25 | Internal Med Progress Note ---
Hospitalist Progress Note - Encounter Date of Encounter: 01/03/18 Time of Encounter: 15:23 - Subjective Interval History: Pt denies CP or SOB. He denies fever, chills, N/V or diarrhea. - Exam Vitals: Temp Pulse Resp BP Pulse Ox 97.8 F 79 18 122/66 91 01/03/18 11:56 01/03/18 11:56 01/03/18 11:56 01/03/18 11:56 01/03/18 11:56 Exam: Physical Exam CONSTITUTIONAL: [well appearing, alert and in no acute distress] EYES: [EOMI, clear conjunctiva, PERRLA] HENT: [Normocephalic, atraumatic, moist mucus membranes, normal oropharynx] NECK: [normal inspection, full ROM, trachea midline, no obvious swelling] PULMONARY: [normal lung sounds bilaterally, normal chest rise and fall, no respiratory distress or stridor, no wheezes, no rales, no rhonchi CARDIOVASCULAR: [Tachycardic, irregular rhythm, normal heart sounds, no murmurs , distal extremities are warm and well perfused] GASTROINSTESTINAL: [soft, non-tender, non-rigid, non-distended, no guarding, no rebound, normal bowel sounds] GENITOURINARY/RECTAL: [deferred] NEUROLOGIC: [Alert, oriented x3, normal speech, moves all extremities] EXTREMITIES: [Normal inspection, full ROM, no tenderness, no pedal edema, normal capillary refill] MUSCULOSKELETAL: [no gross deformities, atraumatic] SKIN: [No cyanosis, no diaphoresis, normal color, warm, no rash] PSYCHIATRIC: [normal mood and affect] - Assessment and Plan (1) Atrial flutter with rapid ventricular response Current Visit: No Status: Acute Assessment and Plan: Patient with recent episode of reported A. fib with RVR. Found to have a heart rate in the 150s. Patient apparently had taken 60 mg of Cardizem at home prior to admission administration of 20 mg IV push in the ED. Rate currently controlled however patient became hypo-tensive. Repeat EKG showed what appears to be atrial flutter with 4-1 conduction with a ventricular rate of 82 bpm. Patient's electronic drafter Dr. 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 Recommending resuming Xarelto. Repeat labs in the morning. (2) Leukocytosis Current Visit: No Status: Acute Assessment and Plan: Elevated white blood cell count of 17. Patient reports recent symptoms of of a resolving upper respiratory tract infection. Patient also reportedly states he takes a low dose of prednisone possibly 5 mg. We will monitor for now. No other source of infection at this time. Patient denies any fever, chills, nausea, vomiting. Denies cough or sputum. (3) COPD exacerbation Current Visit: No Status: Acute Assessment and Plan: History of COPD on home oxygen 2 L at night now with Expiratory wheezes appreciated on lung examination concerning for mild COPD exacerbation. Patient reports putting on scheduled home dose of 5 mg of prednisone daily. On scheduled DuoNeb's every 6 hours. Short course of Solu-Medrol. Blood glucose checks; insulin sliding scale. (4) HTN (hypertension) Current Visit: No Status: Acute Assessment and Plan: History of hypertension. Patient hypotensive in the setting of by mouth and IV Cardizem. Patient on maintenance fluids after bolus. (5) Palpitations Current Visit: Yes Status: Acute Assessment and Plan: Palpitations secondary to what appears to be atrial flutter with 4:1 conduction now rate controlled on Xarelto. Patient currently asymptomatic. Denies any chest pain. (6) Chest discomfort Current Visit: Yes Status: Acute Assessment and Plan: Chest discomfort in setting of palpitations. No reported findings of ST or T- wave changes on EKG reviewed initial troponin negative. Troponin neg x 3. Seen by cardiology. DVT Prophylaxis: Xarelto - Summary of Assessment and Plan Summary of Assessment and Plan: Mr. Levin is a 67 year old male with a past medical history of COPD on 2 L of oxygen at night, degenerative disc disease, hypertension, osteoarthritis and recent admission back in September for atrial flutter with rapid ventricular response rate controlled on anticoagulation who presents with palpitations. Patient is currently on metoprolol and Cardizem and is currently being seen by Dr. Mojica with cardiology. Patient checked his heart rate earlier today when he noted fluttering in his chest. Heart rate was found to be in the 150s. He did note associated shortness of breath and some twinges of chest pain. Denies any headache, changes in vision, numbness, weakness, tingling, abdominal pain, nausea, vomiting or diarrhea.Patient had a previous workup including a cardiac stress test and which was negative for ischemia baseline sinus rhythm with occasional PVCs and 28 days of cardiac monitoring which showed baseline sinus rhythm with occasional PVCs. Last echo performed was in July 2017 which showed a left ventricular ejection fraction of 65% with mild LV diastolic dysfunction, normal right ventricle and [id number] aortic stenosis. EKG was unremarkable with negative troponins. - Time Spent with Patient Total time spent is greater than 50% in coordination of care (as documented) at patient's floor/unit and/or counseling patient: less than 15 minutes Plan of Care Discussed with: patient Internal Medicine: Result - Labs CBC & Chem 7: 01/03/18 01:01 01/03/18 01:01 Labs: Short CBC 01/03/18 Range/Units 01:01 WBC 15.0 H (4.3-11.1) K/mcL Hgb 13.6 (12.9-16.9) g/dL Hct 40.8 (37.5-50.1) % Plt Count 274 (140-400) K/mcL Neutrophils # 10.5 H (1.6-8.9) K/mcL BMP 01/03/18 01:01 Sodium 137 Potassium 3.6 Chloride 100 Carbon Dioxide 32 H BUN 15 Creatinine 0.80 Glucose 113 H Calcium 8.3 L Cardiac Enzymes 01/03/18 01/03/18 Range/Units 01:01 07:06 Troponin I < 0.03 < 0.03 (< 0.04) ng/mL Liver Function 01/03/18 Range/Units 01:01 Total Bilirubin 0.3 (0.3-1.0) mg/dL AST 13 (13-39) Units/L ALT 15 (7-52) Units/L Alkaline Phosphatase 65 (34-104) Units/L Albumin 3.1 L (3.5-5.7) g/dL Consult Discharge Plan - Plan Referrals: Michi Gross MD [Primary Care Provider] - (4) HTN (hypertension) Qualifiers: Hypertension type: unspecified Qualified Code(s): I10 - Essential (primary) hypertension
[2018-01-03] MEDS: *HR* Rivaroxaban 10 MG TABLET PO SCH (16:58)
[2018-01-04] MEDS: MethylPREDNISolone 40 MG/ML VIAL IVP SCH ×3 (00:49→11:53)
[2018-01-04] MEDS: Ipratropium/Albuterol Neb 3 ML IH SCH ×4 (04:16→22:15)
[2018-01-04 06:01] LABS: Basophils % 0.1 %; Hematocrit 39.5 % (37.5-50.1); Hemoglobin 13.1 g/dL (12.9-16.9); Immature Granulocytes % 1.3 % (0-4); Lymphocytes # 0.7 K/mcL (0.6-4.6); Mean Corpuscular HGB Conc 33.2 g/dL (31.6-35.5); Mean Corpuscular Hemoglobin 31.4 pg (28.0-33.3); Mean Corpuscular Volume 94.7 fL (83.0-100.0); Mean Platelet Volume 9.8 fL (9.4-12.4); Monocytes # 0.5 K/mcL (0.0-1.3); Monocytes % 2.3 %; Platelet Count 268 K/mcL (140-400); Red Blood Count 4.17 M/mcL (4.19-5.50); Red Cell Distribution Width 13.2 % (11.5-14.5); Segmented Neutrophils % 93.3 %
[2018-01-04 06:07] LABS: BUN/Creatinine Ratio 24 (6-26); Blood Urea Nitrogen 17 mg/dL (8-23); Calcium 8.4 mg/dL (8.6-10.3); Carbon Dioxide 28 mEq/L (23-29); Chloride 100 mEq/L (98-107); Glucose 163 mg/dL (70-105); Osmolality,Calculated 283 (280-300); Sodium 134 mEq/L (136-145); eGFR For Non-African Americans > 60 (> 60)
[2018-01-04 06:12] LABS: Neutrophils # 21.8 K/mcL (1.6-8.9)
[2018-01-04 06:54] LABS: Platelet Estimate Normal (Normal)
[2018-01-04] MEDS: Insulin LISPRO 300 UNITS/3 ML VIAL SQ SCH ×4 (07:42→21:12)
[2018-01-04] MEDS: Diltiazem CD (24hr) 180 MG CAPSULE PO SCH (07:42)
[2018-01-04] MEDS: Budesonide/Formoterol 160/4.5 1 PUFF INH IH SCH ×2 (10:33→22:15)
--- NOTE | 2018-01-04 13:14 | Internal Med Progress Note ---
Hospitalist Progress Note - Encounter Date of Encounter: 01/04/18 Time of Encounter: 13:13 - Subjective Interval History: Patient seen and examined at bedside denies any chest pain or shortness of breath no fevers or chills - Exam Vitals: Temp Pulse Resp BP Pulse Ox 97.5 F L 81 16 125/64 95 01/04/18 11:56 01/04/18 11:56 01/04/18 11:56 01/04/18 11:56 01/04/18 11:56 Exam: General: Alert and oriented Skin:Normal color, no rash, no lesions. HEENT:EOM, pupils equal, round and reactive. Cardiovascular:Normal S1 & S2, no rubs, murmurs or gallops. No JVD. Pulse regular. Lungs:Normal breath sounds, no wheezes or crackles. Abdomen:Soft, non-tender, no rigidity. Extremities:No deformity, no edema or tenderness, no joint swelling or clubbing. Neurological:Normal cognition and motor skills. Pulses:Carotid and radial pulses normal +2. Rest of the physical exam is non contributory - Assessment and Plan (1) Atrial flutter with rapid ventricular response Current Visit: Yes Status: Acute Assessment and Plan: Patient with recent episode of reported A. fib with RVR. Found to have a heart rate in the 150s. Patient apparently had taken 60 mg of Cardizem at home prior to admission administration of 20 mg IV push in the ED. Rate currently controlled however patient remains hypo-tensive. Repeat EKG shows what appears to be atrial flutter with 4-1 conduction with a ventricular rate of 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 Mojica on board will see patient in the morning. We will continue with rate control. Patient currently on anticoagulation for A. fib. Repeat electrolytes in the morning. 01/04 Currently heart rate controlled blood pressure stable at this time Was seen by cardiology recommending resuming Cymbalta and increase diltiazem 280 mg daily continue beta becki current dose (2) Leukocytosis Current Visit: No Status: Acute Assessment and Plan: Elevated white blood cell count of 17. Patient reports recent symptoms of of a resolving upper respiratory tract infection. Patient also reportedly states he takes a low dose of prednisone possibly 5 mg. We will monitor for now. No other source of infection at this time. Patient denies any fever, chills, nausea, vomiting. 10/12 White count continues to climb 23 today. Patient does report recent symptoms of resolving upper respiratory infection. He is currently on Solu-Medrol IV which we will stepdown to oral prednisone. No wheezing noted at this time appears that he is on a low dose prednisone at home which we will continue once exacerbation improved. Denies any fevers chills nausea or vomiting. Urinalysis okay chest x-ray with no acute process we will obtain respiratory panel recheck labs in a.m. (3) COPD exacerbation Current Visit: Yes Status: Acute Assessment and Plan: History of COPD on home oxygen 2 L at night now with Expiratory wheezes appreciated on lung examination concerning for mild COPD exacerbation. Patient reports putting on scheduled home dose of 5 mg of prednisone daily. We will start on scheduled DuoNeb's every 6 hours. Short course of Solu-Medrol. Blood glucose checks; insulin sliding scale.. 01/04 No wheezes noted at this time was treated for mild COPD exacerbation we will stepdown IV steroids to oral Continue with DuoNeb's Continue with home prednisone dose once exacerbation has resolved (4) HTN (hypertension) Current Visit: No Status: Acute Assessment and Plan: History of hypertension. Patient hypotensive in the setting of by mouth and IV Cardizem. We will start patient on maintenance fluids after bolus. 01/04 Blood pressure stable at this time we will continue with diltiazem metoprolol (5) DVT prophylaxis Current Visit: No Status: Acute Assessment and Plan: Patient currently currently on Xarelto (6) Palpitations Current Visit: Yes Status: Acute Assessment and Plan: Palpitations secondary to what appears to be atrial flutter with 4:1 conduction now rate controlled on Xarelto. Patient currently asymptomatic. Denies any chest pain. 01/04 Denies any palpitations at this time no chest pain asymptomatic we will continue to monitor (7) Atrial fibrillation with rapid ventricular response Current Visit: Yes Status: Acute Assessment and Plan: Patient with recent episode of A. fib with RVR presents with palpitations. Found to have a heart rate in the 150s. Patient apparently had taken 60 mg of Cardizem at home prior to admission administration of 20 mg IV push in the ED. Rate currently controlled however patient remains hypo-tensive. 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 Mojica on board will see patient in the morning. We will continue with rate control. Patient currently on anticoagulation for A. fib. Repeat electrolytes in the morning. 01/04 Currently rate controlled 80s to 90s. Continue with diltiazem and metoprolol patient's anticoagulated on Xarelto Continue cardiac monitoring (8) Chest discomfort Current Visit: Yes Status: Acute Assessment and Plan: Chest discomfort in setting of palpitations. No reported findings of ST or T- wave changes on EKG reviewed initial troponin negative. We will trend troponin for now. 01/04 No chest pain or palpitations at this time troponins have been negative DVT Prophylaxis: Xarelto - Time Spent with Patient Total time spent is greater than 50% in coordination of care (as documented) at patient's floor/unit and/or counseling patient: Internal Medicine: Result - Labs CBC & Chem 7: 01/04/18 05:23 01/04/18 05:23 Labs: Short CBC 01/04/18 Range/Units 05:23 WBC 23.4 H D (4.3-11.1) K/mcL Hgb 13.1 (12.9-16.9) g/dL Hct 39.5 (37.5-50.1) % Plt Count 268 (140-400) K/mcL Neutrophils # 21.8 H (1.6-8.9) K/mcL BMP 01/04/18 05:23 Sodium 134 L Potassium 4.0 Chloride 100 Carbon Dioxide 28 BUN 17 Creatinine 0.70 Glucose 163 H Calcium 8.4 L Consult Discharge Plan - Plan Referrals: Michi Gross MD [Primary Care Provider] - 01/09/18 4:00 pm (Appointment made with Lulú Lea NP.) (2) Leukocytosis Qualifiers: Leukocytosis type: unspecified Qualified Code(s): D72.829 - Elevated white blood cell count, unspecified (4) HTN (hypertension) Qualifiers: Hypertension type: essential hypertension Qualified Code(s): I10 - Essential (primary) hypertension
[2018-01-04] MEDS: *HR* Rivaroxaban 10 MG TABLET PO SCH (16:27)
[2018-01-05 01:05] LABS: Adenovirus Not Detected (Not Detect); Bordetella Pertussis Not Detected (Not Detect); Chlamydophila pneumoniae Not Detected (Not Detect); Coronavirus 229E Not Detected (Not Detect); Coronavirus HKU1 Not Detected (Not Detect); Coronavirus NL63 Not Detected (Not Detect); Coronavirus OC43 Not Detected (Not Detect); Human Metapneumovirus Not Detected (Not Detect); Human Rhinovirus/Enterovirus Not Detected (Not Detect); Influenza A Subtype 2009 H1 Not Detected (Not Detect); Influenza A Untypeable Not Detected (Not Detect); Influenza B Not Detected (Not Detect); Mycoplasma pneumoniae Not Detected (Not Detect); Parainfluenza Virus 1 Not Detected (Not Detect); Parainfluenza Virus 2 Not Detected (Not Detect); Parainfluenza Virus 3 Not Detected (Not Detect); Parainfluenza Virus 4 Not Detected (Not Detect); Respiratory Syncytial Virus Not Detected (Not Detect)
[2018-01-05] MEDS: Ipratropium/Albuterol Neb 3 ML IH SCH ×2 (03:58→10:37)
[2018-01-05 05:11] LABS: Basophils # 0.1 K/mcL (0.0-0.2); Basophils % 0.2 %; Hematocrit 39.8 % (37.5-50.1); Hemoglobin 13.3 g/dL (12.9-16.9); Immature Granulocytes % 1.2 % (0-4); Lymphocytes # 1.1 K/mcL (0.6-4.6); Lymphocytes % 3.8 %; Mean Corpuscular HGB Conc 33.4 g/dL (31.6-35.5); Mean Corpuscular Hemoglobin 31.7 pg (28.0-33.3); Mean Platelet Volume 9.9 fL (9.4-12.4); Monocytes % 3.5 %; Neutrophils # 26.4 K/mcL (1.6-8.9); Platelet Count 286 K/mcL (140-400); Red Blood Count 4.19 M/mcL (4.19-5.50); Red Cell Distribution Width 13.5 % (11.5-14.5); Segmented Neutrophils % 91.3 %
[2018-01-05 05:26] LABS: BUN/Creatinine Ratio 24 (6-26); Blood Urea Nitrogen 20 mg/dL (8-23); Calcium 8.5 mg/dL (8.6-10.3); Carbon Dioxide 29 mEq/L (23-29); Chloride 98 mEq/L (98-107); Glucose 173 mg/dL (70-105); Osmolality,Calculated 285 (280-300); Sodium 134 mEq/L (136-145); eGFR For Non-African Americans > 60 (> 60)
[2018-01-05 05:37] LABS: Platelet Estimate Normal (Normal); Reactive Lymphocytes Present (Not Present)
[2018-01-05] MEDS: Insulin LISPRO 300 UNITS/3 ML VIAL SQ SCH ×2 (08:10→12:06)
[2018-01-05] MEDS: Diltiazem CD (24hr) 180 MG CAPSULE PO SCH (08:12)
[2018-01-05] MEDS ORDERED: predniSONE 20 MG TABLET PO SCH (09:00)
--- NOTE | 2018-01-05 10:19 | Electrocardiograph Report ---
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
[2018-01-05] MEDS: Budesonide/Formoterol 160/4.5 1 PUFF INH IH SCH (10:37)
--- NOTE | 2018-01-05 11:08 | Electrocardiograph Report ---
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
--- NOTE | 2018-01-05 11:12 | Electrocardiograph Report ---
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
--- NOTE | 2018-01-05 11:12 | Electrocardiograph Report ---
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
[2018-01-05 12:02] VITALS: BP 133/69
--- NOTE | 2018-01-05 13:13 | Discharge Summary ---
- NOTES TO OUTPATIENT PROVIDER Notes to Outpatient Provider: Steroid taper, Xarelto. Check CBC he did have some leukocytosis most likely secondary to steroid use Orders not resulted at time of discharge: Pending orders 01/06/18 04:00 BMP [Basic Metabolic Panel] AM 0400 CBC [Complete Blood Count] [HEME] AM 0400 Date of Encounter: 01/05/18 Time of Encounter: 13:08 - Discharge Diagnosis (1) Atrial flutter with rapid ventricular response Priority: Primary Status: Acute (2) Leukocytosis Priority: Secondary Status: Acute Qualifiers: Leukocytosis type: unspecified Qualified Code(s): D72.829 - Elevated white blood cell count, unspecified (3) COPD exacerbation Priority: Secondary Status: Acute (4) HTN (hypertension) Priority: Secondary Status: Acute Qualifiers: Hypertension type: essential hypertension Qualified Code(s): I10 - Essential (primary) hypertension (5) Palpitations Priority: Secondary Status: Acute (6) Atrial fibrillation with rapid ventricular response Priority: Secondary Status: Acute (7) Chest discomfort Priority: Secondary Status: Acute Hospital course: Mr. Levin is a 67 year old male past medical history atrial fibrillation COPD hypertension presented to the emergency department with complaints of palpitations. Patient states he has not been feeling well when he began to feel his heart fluttering and experienced lightheadedness and some shortness of breath. He also experiences occasional left-sided chest pain that would last for a few seconds during the palpitations. He had numbness in his left arm. He did not check his heart rate and was noted to be in the 160s. 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 Upon presentation to the ER tarry was 150 he did receive IV Cardizem he did become hypotensive he did receive some IV fluids and heart rate improved to 7080 which showed an atrial flutter 4-1 conduction. He has similar episode in August this year stress test was negative for ischemia echo in July showed EF 60% with mild left LV diastolic function and mild/moderate aortic stenosis. cardiology was consulted and recommend continuing his Zaroxolyn L as well as increasing his Cardizem 200 mg daily continuing beta becki at current dose. Follow-up with primary plaster helper as outpatient. During his admission patient did experience COPD exacerbation. He was given a steroid as well as bronchodilators his respiratory state did not improve. He also explains elevation in his white count most likely secondary to steroid use. He did not have any fever urinalysis was negative respiratory panel was negative chest x- ray with no acute process. Advised patient to follow-up with his primary care provider as well as with his plaster helper and sees providers know him best and can adjust medications accordingly. I did of ice patient to have his white count checked by his primary care provider. Patient verbalized understanding he is hemodynamically stable at this time is ready for discharge. - Time Spent with Patient Total time spent providing and/or coordinating discharge services: - Discharge Medications Prescriptions: Diltiazem CD (24hr) [Cardizem CD] 180 mg PO DAILY #30 cap.er.24h predniSONE [PredniSONE] 10 mg PO DAILY #23 tablet Rivaroxaban [Xarelto] 20 mg PO 1700 #30 tablet Home Medications: Albuterol Sulfate [Ventolin Hfa] 2 puff IH Q4H PRN 08/01/17 [History] Budesonide/Formoterol 160/4.5 [Symbicort 160/4.5] 2 puff IH BID 08/01/17 [ History] Oxycodone HCl/Acetaminophen [Percocet 10-325 mg Tablet] 1 tab PO QID PRN [History] Diltiazem CD (24hr) [Cardizem CD] 120 mg PO DAILY #30 cap.er.24h 08/03/17 [Rx] Bumetanide [Bumetanide] 0.5 mg PO DAILY 01/02/18 [History] Metoprolol [Lopressor] 25 mg PO BID 01/02/18 [History] Diltiazem CD (24hr) [Cardizem CD] 180 mg PO DAILY #30 cap.er.24h 01/05/18 [Rx] Rivaroxaban [Xarelto] 20 mg PO 1700 #30 tablet 01/05/18 [Rx] predniSONE [PredniSONE] 10 mg PO DAILY #23 tablet 01/05/18 [Rx] Allergies/Adverse Reactions: 3 Allergy/AdvReac Type Severity Reaction Status Date / Time Penicillins AdvReac Anaphylaxis Verified 08/01/17 20:58 Date of admission: 01/02/18 20:57 Primary care physician: Michi Gross MD Consults: 01/03/18 09:43 Consult to Nurse Navigator [CONS] Routine Comment: COPD Discharging clinician: Raysa Ambrosio Anticipated date of discharge: 01/05/18 - Constitutional Vitals: Temp Pulse Resp BP Pulse Ox 97.7 F 86 16 133/69 97 01/05/18 12:01 01/05/18 12:01 01/05/18 12:01 01/05/18 12:01 01/05/18 12:01 General appearance: Present: A&O X 3 Exam: General: Alert and oriented Skin:Normal color, no rash, no lesions. HEENT:EOM, pupils equal, round and reactive. Cardiovascular:Normal S1 & S2, no rubs, murmurs or gallops. No JVD. Pulse regular. Lungs:Normal breath sounds, no wheezes or crackles. Abdomen:Soft, non-tender, no rigidity. Extremities:No deformity, no edema or tenderness, no joint swelling or clubbing. Neurological:Normal cognition and motor skills. Pulses:Carotid and radial pulses normal +2. Rest of the physical exam is non contributory - Head Head exam: Present: atraumatic, normocephalic - Eye Eye exam: Present: PERRL, conjuntiva pink, sclera anicteric Pupils: Present: PERRL - Neck Neck exam general surgery: Present: supple, trachea midline. Absent: lymphadenopathy - Respiratory Respiratory exam: Present: CTAB. Absent: accessory muscle use, rales, rhonchi, wheezes - Cardiovascular Cardiovascular exam: Present: RRR, +S1, +S2. Absent: diastolic murmur, gallop, rubs, systolic murmur - GI/Abdominal GI/Abdominal exam: Present: normal bowel sounds, soft, no peritoneal signs. Absent: distended, tenderness - Extremities Exam Extremities exam: Present: warm, radial pulses palpable and symmetrical. Absent : calf tenderness, cyanotic, pedal edema - Neurological Exam Neurological exam: Present: CN II-XII intact, oriented X3, no focal deficits. Absent: pronater drift, facial droop, speech deficit - Skin Skin exam: Present: dry, intact - Patient Status Disposition: Home, Self-Care Condition: Fair Functional capacity at discharge: independent ambulation Overall status at discharge: patient is back to baseline - Discharge Instructions Instructions: Diltiazem (By mouth), Prednisone (By mouth), Rivaroxaban (By mouth), Atrial Flutter (DC), Atrial Fibrillation (DC), Chronic Obstructive Pulmonary Disease (DC) Follow Up With: [facility] [Provider Group] (Web requested appointment, office will call with appoint date and time. if you do not hear from office within 2-3 days, please call to schedule appoiment.) Michi Gross MD [Primary Care Provider] - 01/09/18 4:00 pm (Appointment made with Lulú Lea NP.) - Diet and Activity Activity: increase activity as tolerated Diet: advance to your usual diet
== END 2018-01-05 14:34 | disposition home or self-care (01) ==
LOC: 3BNU 18:35 → EMEROOARM 18:35 → 3BNU 21:42
PROVIDERS: ADMIT Internal Medicine; ATTEND Internal Medicine

== ENCOUNTER 2019-01-27 17:24 | Inpatient (IN) ==
[2019-01-27] MEDS ORDERED: methylPREDNISolone 125 MG/2 ML VIAL IVP ONE (17:58)
[2019-01-27] MEDS ORDERED: Ipratropium/Albuterol Neb 3 ML IH ONE (17:58)
[2019-01-27] MEDS ORDERED: Azithromycin 250 MG TABLET PO ONE (17:58)
[2019-01-27 18:20] LABS: Mean Platelet Volume 9.7 fL (9.4-12.4); Red Cell Distribution Width 12.8 % (11.5-14.5)
[2019-01-27 18:21] LABS: Hematocrit 40.9 % (37.5-50.1); Hemoglobin 13.6 g/dL (12.9-16.9); Mean Corpuscular HGB Conc 33.3 g/dL (31.6-35.5); Mean Corpuscular Hemoglobin 32.1 pg (28.0-33.3); Mean Corpuscular Volume 96.5 fL (83.0-100.0); Platelet Count 273 K/mcL (140-400); Red Blood Count 4.24 M/mcL (4.19-5.50); White Blood Count 26.5 K/mcL (4.3-11.1)
[2019-01-27 18:23] LABS: INR 1.1; Prothrombin Time 12.7 Seconds (9.4-12.1)
[2019-01-27 18:53] LABS: Lymphocytes # 0.5 K/mcL (0.6-4.6); Platelet Estimate Normal (Normal)
[2019-01-27 19:01] LABS: Alanine Aminotransferase 42 Units/L (7-52); Albumin 3.4 g/dL (3.5-5.7); Albumin/Globulin Ratio 1.5 (1.1-2.2); Alkaline Phosphatase 58 Units/L (34-104); Aspartate Amino Transferase 21 Units/L (13-39); BUN/Creatinine Ratio 39 (6-26); Bilirubin,Direct 0.1 mg/dL (0.0-0.2); Bilirubin,Indirect 0.3 mg/dL (0.0-1.0); Bilirubin,Total 0.4 mg/dL (0.3-1.0); Blood Urea Nitrogen 41 mg/dL (8-23); Calcium 9.5 mg/dL (8.6-10.3); Carbon Dioxide 35 mEq/L (23-29); Chloride 88 mEq/L (98-107); Globulin 2.2 g/dL (2.4-3.5); Glucose 147 mg/dL (70-105); Osmolality,Calculated 283 (280-300); Potassium 4.8 mEq/L (3.5-5.1); Sodium 130 mEq/L (136-145); Total Protein 5.6 g/dL (6.4-8.9); Troponin I 0.03 ng/mL (< 0.04); eGFR For African Americans > 60 (> 60); eGFR For Non-African Americans > 60 (> 60)
[2019-01-27 19:42] LABS: ABG Base Excess 11 mEq/L (-2 to 3); ABG HCO3 38 mEq/L (21-27); ABG Oxygen Saturation 95 % (95-98); ABG PCO2 58 mmHg (35-45); ABG PH 7.42 pH Units (7.32-7.45); ABG PO2 75 mmHg (85-104); ABG TCO2 39 mEq/L (20-26)
[2019-01-27] MEDS ORDERED: levoFLOXacin 500 MG TABLET PO ONE (20:30)
[2019-01-27] MEDS ORDERED: Naloxone 0.4 MG/ML INJ IVP PRN (20:50)
[2019-01-27] MEDS ORDERED: Ipratropium/Albuterol Neb 3 ML IH PRN (20:52)
[2019-01-27] MEDS ORDERED: Azithromycin 250 MG TABLET PO SCH (21:00)
[2019-01-27] MEDS ORDERED: D5% in Water 1,000 ML IVC PRN (22:35)
[2019-01-27] MEDS ORDERED: *HR* Dextrose 50 % in Water (Syg) 50 ML SYRINGE IVP PRN (22:35)
[2019-01-27] MEDS ORDERED: Dextrose Gel 15 GM/37.5 ML TUBE PO PRN ×2 (22:35)
[2019-01-27] MEDS: Furosemide 40 MG TABLET PO SCH (23:42)
[2019-01-28] MEDS: Apixaban 5 MG TABLET PO SCH ×3 (00:58→21:47)
[2019-01-28 04:29] LABS: Basophils # 0.1 K/mcL (0.0-0.2); Basophils % 0.6 %; Hematocrit 39.3 % (37.5-50.1); Hemoglobin 13.4 g/dL (12.9-16.9); Immature Granulocytes % 3.8 % (0-4); Lymphocytes # 0.4 K/mcL (0.6-4.6); Lymphocytes % 2.4 %; Mean Corpuscular HGB Conc 34.1 g/dL (31.6-35.5); Mean Corpuscular Volume 93.8 fL (83.0-100.0); Mean Platelet Volume 10.1 fL (9.4-12.4); Monocytes # 0.3 K/mcL (0.0-1.3); Monocytes % 1.9 %; Neutrophils # 15.6 K/mcL (1.6-8.9); Platelet Count 261 K/mcL (140-400); Red Blood Count 4.19 M/mcL (4.19-5.50); Red Cell Distribution Width 13.1 % (11.5-14.5); Segmented Neutrophils % 91.3 %; White Blood Count 17.1 K/mcL (4.3-11.1)
[2019-01-28 04:40] LABS: BUN/Creatinine Ratio 36 (6-26); Blood Urea Nitrogen 37 mg/dL (8-23); Calcium 8.6 mg/dL (8.6-10.3); Carbon Dioxide 36 mEq/L (23-29); Chloride 88 mEq/L (98-107); Glucose 215 mg/dL (70-105); Magnesium 2.6 mg/dL (1.6-2.6); Osmolality,Calculated 285 (280-300); Sodium 130 mEq/L (136-145); eGFR For African Americans > 60 (> 60); eGFR For Non-African Americans > 60 (> 60)
[2019-01-28] MEDS: Insulin LISPRO 300 UNITS/3 ML VIAL SQ SCH ×4 (07:50→21:47)
[2019-01-28 07:58] LABS: Estimated Average Glucose 169 mg/dl
[2019-01-28] MEDS: Spironolactone 25 MG TABLET PO SCH (08:05)
[2019-01-28] MEDS: Furosemide 40 MG TABLET PO SCH ×2 (08:05→17:02)
[2019-01-28] MEDS: Diltiazem CD (24hr) 120 MG CAPSULE PO SCH (08:05)
[2019-01-28] MEDS ORDERED: methylPREDNISolone 125 MG/2 ML VIAL IVP SCH (08:14)
[2019-01-28] MEDS: Azithromycin 250 MG TABLET PO SCH (08:49)
[2019-01-28] MEDS: MethylPREDNISolone 40 MG/ML VIAL IVP SCH ×2 (08:50→17:02)
[2019-01-28] MEDS: Ipratropium/Albuterol Neb 3 ML IH SCH ×3 (10:14→21:30)
[2019-01-28 11:00] LABS: Adenovirus Not Detected (Not Detect); Bordetella Pertussis Not Detected (Not Detect); Chlamydophila pneumoniae Not Detected (Not Detect); Coronavirus 229E Not Detected (Not Detect); Coronavirus HKU1 Not Detected (Not Detect); Coronavirus NL63 Not Detected (Not Detect); Coronavirus OC43 Not Detected (Not Detect); Human Metapneumovirus Not Detected (Not Detect); Human Rhinovirus/Enterovirus DETECTED (Not Detect); Influenza A Subtype 2009 H1 Not Detected (Not Detect); Influenza A Untypeable Not Detected (Not Detect); Influenza B Not Detected (Not Detect); Mycoplasma pneumoniae Not Detected (Not Detect); Parainfluenza Virus 1 Not Detected (Not Detect); Parainfluenza Virus 2 Not Detected (Not Detect); Parainfluenza Virus 3 Not Detected (Not Detect); Parainfluenza Virus 4 Not Detected (Not Detect); Respiratory Syncytial Virus Not Detected (Not Detect)
[2019-01-28] MEDS: Budesonide/Formoterol 160/4.5 1 PUFF INH IH SCH ×2 (15:05→21:30)
[2019-01-28] MEDS ORDERED: Azithromycin 250 MG TABLET PO SCH (18:00)
[2019-01-29] MEDS ORDERED: methylPREDNISolone 125 MG/2 ML VIAL IVP SCH (02:00)
[2019-01-29] MEDS: Ipratropium/Albuterol Neb 3 ML IH SCH ×4 (04:06→22:17)
[2019-01-29 04:52] LABS: Basophils # 0.1 K/mcL (0.0-0.2); Basophils % 0.4 %; Hematocrit 37.3 % (37.5-50.1); Hemoglobin 12.7 g/dL (12.9-16.9); Immature Granulocytes % 3.9 % (0-4); Lymphocytes % 2.2 %; Mean Corpuscular Hemoglobin 31.8 pg (28.0-33.3); Mean Corpuscular Volume 93.5 fL (83.0-100.0); Mean Platelet Volume 10.1 fL (9.4-12.4); Monocytes # 1.1 K/mcL (0.0-1.3); Monocytes % 4.3 %; Platelet Count 248 K/mcL (140-400); Red Blood Count 3.99 M/mcL (4.19-5.50); Red Cell Distribution Width 12.9 % (11.5-14.5); Segmented Neutrophils % 89.2 %; White Blood Count 24.6 K/mcL (4.3-11.1)
[2019-01-29 04:56] LABS: Lymphocytes # 0.5 K/mcL (0.6-4.6); Neutrophils # 21.9 K/mcL (1.6-8.9)
[2019-01-29 05:06] LABS: BUN/Creatinine Ratio 42 (6-26); Blood Urea Nitrogen 44 mg/dL (8-23); Calcium 8.1 mg/dL (8.6-10.3); Carbon Dioxide 33 mEq/L (23-29); Chloride 88 mEq/L (98-107); Glucose 242 mg/dL (70-105); Osmolality,Calculated 287 (280-300); Potassium 4.3 mEq/L (3.5-5.1); Sodium 129 mEq/L (136-145); eGFR For African Americans > 60 (> 60); eGFR For Non-African Americans > 60 (> 60)
[2019-01-29] MEDS: MethylPREDNISolone 40 MG/ML VIAL IVP SCH ×2 (05:18→17:17)
[2019-01-29] MEDS: Apixaban 5 MG TABLET PO SCH ×2 (08:58→20:38)
[2019-01-29] MEDS: Azithromycin 250 MG TABLET PO SCH (08:58)
[2019-01-29] MEDS: Spironolactone 25 MG TABLET PO SCH (08:58)
[2019-01-29] MEDS: Diltiazem CD (24hr) 120 MG CAPSULE PO SCH (08:59)
[2019-01-29] MEDS: Furosemide 40 MG TABLET PO SCH ×2 (08:59→17:17)
[2019-01-29] MEDS: Insulin LISPRO 300 UNITS/3 ML VIAL SQ SCH ×3 (08:59→17:20)
[2019-01-29] MEDS ORDERED: *HR* OxyCODONE/APAP 10/325 TABLET PO PRN (09:24)
[2019-01-29] MEDS ORDERED: Albuterol 2.5 MG/3 ML NEBULIZER IH PRN (09:28)
[2019-01-29] MEDS: Budesonide/Formoterol 160/4.5 1 PUFF INH IH SCH ×2 (09:40→22:17)
[2019-01-29] MEDS: *HR* Metoprolol 5 MG/5 ML VIAL IVP PRN (17:17)
[2019-01-30] MEDS: Insulin LISPRO 300 UNITS/3 ML VIAL SQ SCH ×5 (01:46→20:08)
[2019-01-30 04:21] LABS: Mean Platelet Volume 9.9 fL (9.4-12.4); Red Cell Distribution Width 12.8 % (11.5-14.5)
[2019-01-30 04:23] LABS: Hematocrit 39.8 % (37.5-50.1); Hemoglobin 13.2 g/dL (12.9-16.9); Mean Corpuscular HGB Conc 33.2 g/dL (31.6-35.5); Mean Corpuscular Hemoglobin 31.7 pg (28.0-33.3); Mean Corpuscular Volume 95.4 fL (83.0-100.0); Platelet Count 264 K/mcL (140-400); Red Blood Count 4.17 M/mcL (4.19-5.50); White Blood Count 26.2 K/mcL (4.3-11.1)
[2019-01-30] MEDS: Ipratropium/Albuterol Neb 3 ML IH SCH ×3 (04:30→15:32)
[2019-01-30 04:43] LABS: BUN/Creatinine Ratio 39 (6-26); Blood Urea Nitrogen 33 mg/dL (8-23); Calcium 8.2 mg/dL (8.6-10.3); Carbon Dioxide 37 mEq/L (23-29); Chloride 89 mEq/L (98-107); Glucose 211 mg/dL (70-105); Magnesium 2.3 mg/dL (1.6-2.6); Osmolality,Calculated 288 (280-300); Potassium 4.9 mEq/L (3.5-5.1); Sodium 132 mEq/L (136-145); eGFR For African Americans > 60 (> 60); eGFR For Non-African Americans > 60 (> 60)
[2019-01-30 04:55] LABS: Thyroid Stimulating Hormone 0.635 mcIU/mL (0.340-5.600)
[2019-01-30 04:59] LABS: Lymphocytes # 1.1 K/mcL (0.6-4.6); Monocytes # 1.6 K/mcL (0.0-1.3); Neutrophils # 23.6 K/mcL (1.6-8.9)
[2019-01-30 05:00] LABS: Platelet Estimate Normal (Normal)
[2019-01-30] MEDS: Azithromycin 250 MG TABLET PO SCH (07:42)
[2019-01-30] MEDS: predniSONE 20 MG TABLET PO SCH (07:42)
[2019-01-30] MEDS: Apixaban 5 MG TABLET PO SCH ×2 (07:42→20:08)
[2019-01-30] MEDS: Furosemide 40 MG TABLET PO SCH ×2 (07:42→16:44)
[2019-01-30] MEDS: Spironolactone 25 MG TABLET PO SCH (07:42)
[2019-01-30] MEDS: Diltiazem CD (24hr) 120 MG CAPSULE PO SCH (07:43)
[2019-01-30] MEDS: Budesonide/Formoterol 160/4.5 1 PUFF INH IH SCH ×2 (10:37→21:45)
[2019-01-30] MEDS: *HR* Metoprolol 5 MG/5 ML VIAL IVP PRN (18:32)
[2019-01-30] MEDS: Metoprolol XL (24 HR) Succ 50 MG TAB.ER.24H PO SCH (20:08)
[2019-01-30] MEDS: Levalbuterol Neb 0.63 MG/3 ML IH SCH (21:45)
[2019-01-31 00:59] LABS: Hematocrit 38.2 % (37.5-50.1); Hemoglobin 12.6 g/dL (12.9-16.9); Mean Corpuscular Hemoglobin 31.9 pg (28.0-33.3); Mean Corpuscular Volume 96.7 fL (83.0-100.0); Mean Platelet Volume 9.9 fL (9.4-12.4); Platelet Count 250 K/mcL (140-400); Red Blood Count 3.95 M/mcL (4.19-5.50); Red Cell Distribution Width 12.7 % (11.5-14.5); White Blood Count 24.5 K/mcL (4.3-11.1)
[2019-01-31 01:19] LABS: BUN/Creatinine Ratio 42 (6-26); Blood Urea Nitrogen 36 mg/dL (8-23); Calcium 8.2 mg/dL (8.6-10.3); Carbon Dioxide 33 mEq/L (23-29); Chloride 90 mEq/L (98-107); Glucose 245 mg/dL (70-105); Osmolality,Calculated 286 (280-300); Potassium 3.8 mEq/L (3.5-5.1); Sodium 130 mEq/L (136-145); eGFR For African Americans > 60 (> 60); eGFR For Non-African Americans > 60 (> 60)
[2019-01-31 01:30] LABS: Eosinophils # 0.5 K/mcL (0.0-0.6); Lymphocytes # 5.9 K/mcL (0.6-4.6); Neutrophils # 18.1 K/mcL (1.6-8.9); Platelet Estimate Normal (Normal)
[2019-01-31] MEDS: Levalbuterol Neb 0.63 MG/3 ML IH SCH ×2 (03:51→10:33)
[2019-01-31] MEDS: Insulin LISPRO 300 UNITS/3 ML VIAL SQ SCH (07:52)
[2019-01-31] MEDS: Spironolactone 25 MG TABLET PO SCH (07:53)
[2019-01-31] MEDS: Metoprolol XL (24 HR) Succ 50 MG TAB.ER.24H PO SCH (07:53)
[2019-01-31] MEDS: predniSONE 20 MG TABLET PO SCH (07:53)
[2019-01-31] MEDS: Furosemide 40 MG TABLET PO SCH (07:53)
[2019-01-31] MEDS: Azithromycin 250 MG TABLET PO SCH (07:53)
[2019-01-31] MEDS: Apixaban 5 MG TABLET PO SCH (07:53)
[2019-01-31 07:59] VITALS: BP 123/68
[2019-01-31] MEDS: Budesonide/Formoterol 160/4.5 1 PUFF INH IH SCH (10:34)
== END 2019-01-31 13:35 | disposition home or self-care (01) | DRG 190 ==
LOC: 2ANU 17:24 → EMEROOARM 17:24 → 2ANU 21:39 → SUATTDRO 01-28 16:34
PROVIDERS: ADMIT Internal Medicine; ATTEND Pharmacist

== ENCOUNTER 2019-04-07 13:49 | Inpatient (IN) ==
[2019-04-07] MEDS ORDERED: Ipratropium/Albuterol Neb 3 ML IH ONE (14:52)
[2019-04-07] MEDS ORDERED: methylPREDNISolone 125 MG/2 ML VIAL IVP ONE (14:52)
[2019-04-07 15:17] LABS: Basophils # 0.1 K/mcL (0.0-0.2); Basophils % 0.7 %; Eosinophils % 0.4 %; Hematocrit 38.3 % (37.5-50.1); Hemoglobin 12.4 g/dL (12.9-16.9); Immature Granulocytes % 1.1 % (0-4); Lymphocytes # 0.9 K/mcL (0.6-4.6); Lymphocytes % 13.4 %; Mean Corpuscular HGB Conc 32.4 g/dL (31.6-35.5); Mean Corpuscular Hemoglobin 31.2 pg (28.0-33.3); Mean Corpuscular Volume 96.2 fL (83.0-100.0); Mean Platelet Volume 9.1 fL (9.4-12.4); Monocytes % 14.1 %; Platelet Count 306 K/mcL (140-400); Red Blood Count 3.98 M/mcL (4.19-5.50); Red Cell Distribution Width 13.8 % (11.5-14.5); Segmented Neutrophils % 70.3 %
[2019-04-07 15:20] LABS: INR 1.1
[2019-04-07 15:22] LABS: Activated Partial Thrombo Time 39.4 Seconds (26.0-36.0)
[2019-04-07 15:27] LABS: BUN/Creatinine Ratio 16 (6-26); Blood Urea Nitrogen 12 mg/dL (8-23); Calcium 9.1 mg/dL (8.6-10.3); Carbon Dioxide 34 mEq/L (23-29); Chloride 94 mEq/L (98-107); Glucose 112 mg/dL (70-105); Osmolality,Calculated 285 (280-300); Potassium 3.7 mEq/L (3.5-5.1); Sodium 137 mEq/L (136-145); eGFR For African Americans > 60 (> 60); eGFR For Non-African Americans > 60 (> 60)
[2019-04-07] MEDS ORDERED: Azithromycin 500 MG in 0.9 % Sodium Chloride 250 ML IVPB ONE (16:30)
[2019-04-07] MEDS ORDERED: Ondansetron 4 MG/2 ML VIAL IVP PRN (16:42)
[2019-04-07] MEDS ORDERED: Naloxone 0.4 MG/ML INJ IVP PRN ×2 (16:42→16:47)
[2019-04-07] MEDS ORDERED: Ipratropium/Albuterol Neb 3 ML IH PRN (16:46)
[2019-04-07] MEDS ORDERED: *HR* HYDROcodone/Acet 5/325 mg TABLET PO PRN (16:47)
[2019-04-07] MEDS ORDERED: Acetaminophen 325 MG TABLET PO PRN (16:47)
[2019-04-07 17:05] LABS: ABG Base Excess 10 mEq/L (-2 to 3); ABG HCO3 37 mEq/L (21-27); ABG Oxygen Saturation 98 % (95-98); ABG PCO2 60 mmHg (35-45); ABG PO2 102 mmHg (85-104); ABG TCO2 39 mEq/L (20-26)
[2019-04-07] MEDS: Ipratropium/Albuterol Neb 3 ML IH SCH (20:01)
[2019-04-07] MEDS: Budesonide/Formoterol 160/4.5 1 PUFF INH IH SCH (20:01)
[2019-04-07] MEDS: Apixaban 5 MG TABLET PO SCH (20:18)
[2019-04-07] MEDS: Furosemide 40 MG TABLET PO SCH (20:18)
[2019-04-07 22:03] LABS: Adenovirus Not Detected (Not Detect); Coronavirus 229E Not Detected (Not Detect); Coronavirus HKU1 DETECTED (Not Detect); Coronavirus NL63 Not Detected (Not Detect); Coronavirus OC43 Not Detected (Not Detect); Human Metapneumovirus Not Detected (Not Detect); Human Rhinovirus/Enterovirus Not Detected (Not Detect); Influenza A Subtype 2009 H1 Not Detected (Not Detect)
[2019-04-07 22:04] LABS: Bordetella Pertussis Not Detected (Not Detect); Chlamydophila pneumoniae Not Detected (Not Detect); Influenza B Not Detected (Not Detect); Mycoplasma pneumoniae Not Detected (Not Detect); Parainfluenza Virus 1 Not Detected (Not Detect); Parainfluenza Virus 2 Not Detected (Not Detect); Parainfluenza Virus 3 Not Detected (Not Detect); Parainfluenza Virus 4 Not Detected (Not Detect); Respiratory Syncytial Virus Not Detected (Not Detect)
[2019-04-08] MEDS: Ipratropium/Albuterol Neb 3 ML IH SCH ×6 (00:06→20:17)
[2019-04-08 03:20] LABS: Basophils % 0.2 %; Hematocrit 38.8 % (37.5-50.1); Hemoglobin 12.1 g/dL (12.9-16.9); Immature Granulocytes % 1.6 % (0-4); Lymphocytes # 0.6 K/mcL (0.6-4.6); Lymphocytes % 11.5 %; Mean Corpuscular HGB Conc 31.2 g/dL (31.6-35.5); Mean Corpuscular Volume 99.5 fL (83.0-100.0); Mean Platelet Volume 9.5 fL (9.4-12.4); Monocytes # 0.5 K/mcL (0.0-1.3); Monocytes % 9.3 %; Platelet Count 314 K/mcL (140-400); Red Cell Distribution Width 13.8 % (11.5-14.5); Segmented Neutrophils % 77.4 %; White Blood Count 5.2 K/mcL (4.3-11.1)
[2019-04-08 03:38] LABS: BUN/Creatinine Ratio 20 (6-26); Blood Urea Nitrogen 17 mg/dL (8-23); Calcium 8.5 mg/dL (8.6-10.3); Carbon Dioxide 33 mEq/L (23-29); Chloride 95 mEq/L (98-107); Glucose 97 mg/dL (70-105); Osmolality,Calculated 285 (280-300); Potassium 3.9 mEq/L (3.5-5.1); Sodium 137 mEq/L (136-145); eGFR For African Americans > 60 (> 60); eGFR For Non-African Americans > 60 (> 60)
[2019-04-08] MEDS: Budesonide/Formoterol 160/4.5 1 PUFF INH IH SCH ×2 (07:42→20:17)
[2019-04-08] MEDS: Furosemide 40 MG TABLET PO SCH ×2 (10:17→18:35)
[2019-04-08] MEDS: Spironolactone 25 MG TABLET PO SCH (10:17)
[2019-04-08] MEDS: MethylPREDNISolone 40 MG/ML VIAL IVP SCH (10:17)
[2019-04-08] MEDS: Apixaban 5 MG TABLET PO SCH ×2 (10:17→20:51)
[2019-04-08] MEDS: Azithromycin 500 MG in 0.9 % Sodium Chloride 250 ML IVPB SCH (13:40)
[2019-04-08] MEDS ORDERED: *HR* Heparin 5,000 UNIT/ML VIAL SQ SCH (18:00)
[2019-04-09] MEDS: Ipratropium/Albuterol Neb 3 ML IH SCH ×7 (00:04→23:31)
[2019-04-09 02:57] LABS: Hematocrit 35.9 % (37.5-50.1); Hemoglobin 11.7 g/dL (12.9-16.9); Mean Corpuscular HGB Conc 32.6 g/dL (31.6-35.5); Mean Corpuscular Hemoglobin 30.7 pg (28.0-33.3); Mean Corpuscular Volume 94.2 fL (83.0-100.0); Mean Platelet Volume 9.3 fL (9.4-12.4); Platelet Count 327 K/mcL (140-400); Red Blood Count 3.81 M/mcL (4.19-5.50); Red Cell Distribution Width 13.6 % (11.5-14.5)
[2019-04-09 02:58] LABS: White Blood Count 8.8 K/mcL (4.3-11.1)
[2019-04-09 03:19] LABS: BUN/Creatinine Ratio 25 (6-26); Blood Urea Nitrogen 22 mg/dL (8-23); Calcium 8.2 mg/dL (8.6-10.3); Carbon Dioxide 33 mEq/L (23-29); Chloride 96 mEq/L (98-107); Glucose 105 mg/dL (70-105); Osmolality,Calculated 290 (280-300); Potassium 3.2 mEq/L (3.5-5.1); Sodium 138 mEq/L (136-145); eGFR For African Americans > 60 (> 60); eGFR For Non-African Americans > 60 (> 60)
[2019-04-09] MEDS: Budesonide/Formoterol 160/4.5 1 PUFF INH IH SCH ×2 (07:40→20:04)
[2019-04-09] MEDS: Furosemide 40 MG TABLET PO SCH (09:18)
[2019-04-09] MEDS: Apixaban 5 MG TABLET PO SCH ×2 (09:18→20:40)
[2019-04-09] MEDS: Spironolactone 25 MG TABLET PO SCH (09:18)
[2019-04-09] MEDS: MethylPREDNISolone 40 MG/ML VIAL IVP SCH (09:18)
[2019-04-09] MEDS: Azithromycin 500 MG in 0.9 % Sodium Chloride 250 ML IVPB SCH (12:23)
[2019-04-09] MEDS: Metoprolol XL (24 HR) Succ 50 MG TAB.ER.24H PO SCH (15:47)
[2019-04-10] MEDS: Ipratropium/Albuterol Neb 3 ML IH SCH ×6 (04:06→23:59)
[2019-04-10 05:27] LABS: Hematocrit 38.8 % (37.5-50.1); Hemoglobin 12.3 g/dL (12.9-16.9); Mean Corpuscular HGB Conc 31.7 g/dL (31.6-35.5); Mean Corpuscular Hemoglobin 31.3 pg (28.0-33.3); Mean Corpuscular Volume 98.7 fL (83.0-100.0); Mean Platelet Volume 9.3 fL (9.4-12.4); Platelet Count 333 K/mcL (140-400); Red Blood Count 3.93 M/mcL (4.19-5.50); Red Cell Distribution Width 13.3 % (11.5-14.5); White Blood Count 11.3 K/mcL (4.3-11.1)
[2019-04-10 05:42] LABS: BUN/Creatinine Ratio 27 (6-26); Blood Urea Nitrogen 21 mg/dL (8-23); Carbon Dioxide 36 mEq/L (23-29); Chloride 93 mEq/L (98-107); Glucose 151 mg/dL (70-105); Osmolality,Calculated 290 (280-300); Potassium 3.6 mEq/L (3.5-5.1); Sodium 137 mEq/L (136-145); eGFR For African Americans > 60 (> 60); eGFR For Non-African Americans > 60 (> 60)
[2019-04-10] MEDS: Budesonide/Formoterol 160/4.5 1 PUFF INH IH SCH ×2 (07:52→20:13)
[2019-04-10] MEDS ORDERED: Furosemide 40 MG TABLET PO SCH (08:00)
[2019-04-10] MEDS ORDERED: Metoprolol 100 MG TABLET PO SCH (09:00)
[2019-04-10] MEDS ORDERED: Metoprolol XL (24 HR) Succ 50 MG TAB.ER.24H PO SCH (09:00)
[2019-04-10] MEDS: Metoprolol XL (24 HR) Succ 50 MG TAB.ER.24H PO SCH (09:13)
[2019-04-10] MEDS: MethylPREDNISolone 40 MG/ML VIAL IVP SCH ×2 (09:13→16:57)
[2019-04-10] MEDS: Apixaban 5 MG TABLET PO SCH ×2 (09:13→21:11)
[2019-04-10] MEDS: Magnesium Oxide 400 MG TABLET PO SCH (09:13)
[2019-04-10] MEDS: Spironolactone 25 MG TABLET PO SCH (09:15)
[2019-04-10] MEDS: Azithromycin 500 MG in 0.9 % Sodium Chloride 250 ML IVPB SCH (11:50)
[2019-04-11] MEDS: Ipratropium/Albuterol Neb 3 ML IH SCH ×5 (04:01→20:26)
[2019-04-11 05:08] LABS: Basophils % 0.2 %; Eosinophils % 0.1 %; Hematocrit 37.6 % (37.5-50.1); Hemoglobin 11.9 g/dL (12.9-16.9); Immature Granulocytes % 1.6 % (0-4); Lymphocytes # 1.4 K/mcL (0.6-4.6); Lymphocytes % 11.5 %; Mean Corpuscular HGB Conc 31.6 g/dL (31.6-35.5); Mean Corpuscular Hemoglobin 30.3 pg (28.0-33.3); Mean Corpuscular Volume 95.7 fL (83.0-100.0); Mean Platelet Volume 9.6 fL (9.4-12.4); Monocytes # 0.9 K/mcL (0.0-1.3); Monocytes % 7.2 %; Neutrophils # 9.8 K/mcL (1.6-8.9); Platelet Count 360 K/mcL (140-400); Red Blood Count 3.93 M/mcL (4.19-5.50); Red Cell Distribution Width 13.2 % (11.5-14.5); Segmented Neutrophils % 79.4 %; White Blood Count 12.3 K/mcL (4.3-11.1)
[2019-04-11 05:26] LABS: BUN/Creatinine Ratio 30 (6-26); Blood Urea Nitrogen 20 mg/dL (8-23); Calcium 8.6 mg/dL (8.6-10.3); Carbon Dioxide 34 mEq/L (23-29); Chloride 94 mEq/L (98-107); Glucose 129 mg/dL (70-105); Osmolality,Calculated 282 (280-300); Potassium 4.2 mEq/L (3.5-5.1); Sodium 134 mEq/L (136-145); eGFR For African Americans > 60 (> 60); eGFR For Non-African Americans > 60 (> 60)
[2019-04-11] MEDS: MethylPREDNISolone 40 MG/ML VIAL IVP SCH ×2 (05:50→18:33)
[2019-04-11] MEDS: Budesonide/Formoterol 160/4.5 1 PUFF INH IH SCH ×2 (08:18→20:26)
[2019-04-11] MEDS: Apixaban 5 MG TABLET PO SCH ×2 (10:54→21:44)
[2019-04-11] MEDS: Spironolactone 25 MG TABLET PO SCH (10:54)
[2019-04-11] MEDS: Magnesium Oxide 400 MG TABLET PO SCH (10:55)
[2019-04-11] MEDS: Furosemide 40 MG in 0.9 % Sodium Chloride 50 ML IV SCH (10:55)
[2019-04-11] MEDS: Metoprolol XL (24 HR) Succ 50 MG TAB.ER.24H PO SCH (10:55)
[2019-04-11] MEDS: Azithromycin 500 MG in 0.9 % Sodium Chloride 250 ML IVPB SCH (13:25)
[2019-04-11] MEDS: *HR* OxyCODONE Immed Rel 5 MG TABLET PO PRN (21:44)
[2019-04-12] MEDS: Ipratropium/Albuterol Neb 3 ML IH SCH ×6 (00:03→20:54)
[2019-04-12 06:19] LABS: Basophils # 0.1 K/mcL (0.0-0.2); Basophils % 0.5 %; Eosinophils % 0.1 %; Hematocrit 40.6 % (37.5-50.1); Hemoglobin 12.5 g/dL (12.9-16.9); Immature Granulocytes % 2.6 % (0-4); Lymphocytes # 1.9 K/mcL (0.6-4.6); Lymphocytes % 12.3 %; Mean Corpuscular HGB Conc 30.8 g/dL (31.6-35.5); Mean Corpuscular Hemoglobin 30.4 pg (28.0-33.3); Mean Corpuscular Volume 98.8 fL (83.0-100.0); Mean Platelet Volume 9.2 fL (9.4-12.4); Monocytes % 6.4 %; Neutrophils # 12.2 K/mcL (1.6-8.9); Platelet Count 367 K/mcL (140-400); Red Blood Count 4.11 M/mcL (4.19-5.50); Red Cell Distribution Width 13.3 % (11.5-14.5); Segmented Neutrophils % 78.1 %; White Blood Count 15.6 K/mcL (4.3-11.1)
[2019-04-12] MEDS: MethylPREDNISolone 40 MG/ML VIAL IVP SCH (06:30)
[2019-04-12 06:36] LABS: BUN/Creatinine Ratio 29 (6-26); Blood Urea Nitrogen 23 mg/dL (8-23); Calcium 9.1 mg/dL (8.6-10.3); Carbon Dioxide 36 mEq/L (23-29); Chloride 92 mEq/L (98-107); Glucose 130 mg/dL (70-105); Osmolality,Calculated 287 (280-300); Potassium 4.6 mEq/L (3.5-5.1); Sodium 136 mEq/L (136-145); eGFR For African Americans > 60 (> 60); eGFR For Non-African Americans > 60 (> 60)
[2019-04-12] MEDS: *HR* OxyCODONE Immed Rel 5 MG TABLET PO PRN (07:02)
[2019-04-12] MEDS: Budesonide/Formoterol 160/4.5 1 PUFF INH IH SCH ×2 (08:04→20:54)
[2019-04-12] MEDS: Metoprolol XL (24 HR) Succ 50 MG TAB.ER.24H PO SCH (08:56)
[2019-04-12] MEDS: Spironolactone 25 MG TABLET PO SCH (08:57)
[2019-04-12] MEDS: Apixaban 5 MG TABLET PO SCH ×2 (08:57→19:30)
[2019-04-12] MEDS: Magnesium Oxide 400 MG TABLET PO SCH (08:57)
[2019-04-12] MEDS: Furosemide 40 MG in 0.9 % Sodium Chloride 50 ML IV SCH (09:52)
[2019-04-12] MEDS: Azithromycin 500 MG in 0.9 % Sodium Chloride 250 ML IVPB SCH (13:21)
[2019-04-12] MEDS ORDERED: predniSONE 20 MG TABLET PO ONE (18:00)
[2019-04-13] MEDS: Ipratropium/Albuterol Neb 3 ML IH SCH ×3 (00:03→07:50)
[2019-04-13 05:54] LABS: Basophils # 0.1 K/mcL (0.0-0.2); Basophils % 0.5 %; Eosinophils % 0.2 %; Hematocrit 38.1 % (37.5-50.1); Hemoglobin 11.8 g/dL (12.9-16.9); Immature Granulocytes % 2.7 % (0-4); Lymphocytes # 2.3 K/mcL (0.6-4.6); Lymphocytes % 13.7 %; Mean Corpuscular Hemoglobin 30.6 pg (28.0-33.3); Mean Corpuscular Volume 98.7 fL (83.0-100.0); Mean Platelet Volume 9.3 fL (9.4-12.4); Monocytes # 1.2 K/mcL (0.0-1.3); Neutrophils # 12.5 K/mcL (1.6-8.9); Platelet Count 351 K/mcL (140-400); Red Blood Count 3.86 M/mcL (4.19-5.50); Red Cell Distribution Width 13.3 % (11.5-14.5); Segmented Neutrophils % 75.9 %; White Blood Count 16.5 K/mcL (4.3-11.1)
[2019-04-13 06:15] LABS: BUN/Creatinine Ratio 30 (6-26); Blood Urea Nitrogen 23 mg/dL (8-23); Calcium 8.7 mg/dL (8.6-10.3); Carbon Dioxide 38 mEq/L (23-29); Chloride 95 mEq/L (98-107); Glucose 120 mg/dL (70-105); Osmolality,Calculated 285 (280-300); Potassium 4.8 mEq/L (3.5-5.1); Sodium 135 mEq/L (136-145); eGFR For African Americans > 60 (> 60); eGFR For Non-African Americans > 60 (> 60)
[2019-04-13 07:05] VITALS: BP 134/70
[2019-04-13] MEDS: Budesonide/Formoterol 160/4.5 1 PUFF INH IH SCH (07:50)
[2019-04-13] MEDS ORDERED: predniSONE 20 MG TABLET PO SCH (09:00)
[2019-04-13] MEDS: Metoprolol XL (24 HR) Succ 50 MG TAB.ER.24H PO SCH (09:35)
[2019-04-13] MEDS: Apixaban 5 MG TABLET PO SCH (09:36)
[2019-04-13] MEDS: Magnesium Oxide 400 MG TABLET PO SCH (09:36)
[2019-04-13] MEDS: Spironolactone 25 MG TABLET PO SCH (09:36)
[2019-04-13] MEDS: Furosemide 40 MG in 0.9 % Sodium Chloride 50 ML IV SCH (09:36)
== END 2019-04-13 12:05 | disposition home health service (06) | DRG 190 ==
LOC: 3BNU 13:49 → EMEROOARM 13:49 → 3BNU 20:02
PROVIDERS: ADMIT Internal Medicine; ATTEND Internal Medicine

== ENCOUNTER 2019-11-25 19:06 | Inpatient (IN) ==
[2019-11-25] MEDS ORDERED: methylPREDNISolone 125 MG/2 ML VIAL IVP ONE (19:33)
[2019-11-25] MEDS ORDERED: Ipratropium/Albuterol Neb 3 ML IH ONE (19:33)
[2019-11-25 20:19] LABS: Basophils # 0.1 K/mcL (0.0-0.2); Basophils % 0.4 %; Eosinophils # 0.1 K/mcL (0.0-0.6); Eosinophils % 0.4 %; Hematocrit 42.1 % (37.5-50.1); Hemoglobin 13.4 g/dL (12.9-16.9); Immature Granulocytes % 1.7 % (0-4); Lymphocytes % 5.2 %; Mean Corpuscular HGB Conc 31.8 g/dL (31.6-35.5); Mean Corpuscular Hemoglobin 30.3 pg (28.0-33.3); Mean Corpuscular Volume 95.2 fL (83.0-100.0); Mean Platelet Volume 9.9 fL (9.4-12.4); Monocytes # 1.3 K/mcL (0.0-1.3); Neutrophils # 15.7 K/mcL (1.6-8.9); Platelet Count 342 K/mcL (140-400); Red Blood Count 4.42 M/mcL (4.19-5.50); Red Cell Distribution Width 15.2 % (11.5-14.5); Segmented Neutrophils % 85.3 %; White Blood Count 18.4 K/mcL (4.3-11.1)
[2019-11-25 20:24] LABS: Amorphous Sediment,Urine Few per hpf (None-Few); Bacteria,Urine Few per hpf (None-Few); Bilirubin,Urine Negative (Negative); Blood,Urine Negative (Negative); Clarity,Urine Ex.Turbid (Clear); Color,Urine Yellow (Yellow); Glucose,Urine (UA) Normal (Normal); Ketones,Urine Negative (Negative); Leukocyte Esterase,Urine Negative (Negative); Mucus,Urine Few per lpf (None-Few); Nitrite,Urine Negative (Negative); Protein,Urine Trace mg/dL (Neg-Trace); RBC,Urine 0-3 per hpf (0-3); Specific Gravity,Urine 1.015 (1.010-1.025); Urobilinogen,Urine Normal (Normal); WBC,Urine 0-3 per hpf (0-3)
[2019-11-25 20:27] LABS: Prothrombin Time 11.3 Seconds (9.4-12.1)
[2019-11-25 20:30] LABS: Activated Partial Thrombo Time 31.2 Seconds (26.0-36.0)
[2019-11-25 20:40] LABS: Alanine Aminotransferase 19 Units/L (7-52); Albumin 3.6 g/dL (3.5-5.7); Albumin/Globulin Ratio 1.5 (1.1-2.2); Alkaline Phosphatase 75 Units/L (34-104); Aspartate Amino Transferase 13 Units/L (13-39); BUN/Creatinine Ratio 18 (6-26); Bilirubin,Indirect 0.3 mg/dL (0.0-1.0); Bilirubin,Total 0.3 mg/dL (0.3-1.0); Blood Urea Nitrogen 14 mg/dL (8-23); Calcium 9.7 mg/dL (8.6-10.3); Carbon Dioxide 36 mEq/L (23-29); Chloride 97 mEq/L (98-107); Globulin 2.4 g/dL (2.4-3.5); Glucose 128 mg/dL (70-105); Osmolality,Calculated 288 (280-300); Potassium 3.7 mEq/L (3.5-5.1); Sodium 138 mEq/L (136-145); Troponin I < 0.03 ng/mL (< 0.04); eGFR For African Americans > 60 (> 60); eGFR For Non-African Americans > 60 (> 60)
[2019-11-25] MEDS ORDERED: Ondansetron 4 MG/2 ML VIAL IVP PRN (22:00)
[2019-11-25] MEDS ORDERED: Naloxone 0.4 MG/ML INJ IVP PRN (22:00)
[2019-11-25] MEDS ORDERED: Ipratropium/Albuterol Neb 3 ML IH PRN (22:02)
[2019-11-25] MEDS ORDERED: Dextrose Gel 15 GM/37.5 ML TUBE PO PRN ×2 (22:09)
[2019-11-25] MEDS ORDERED: *HR* Dextrose 50 % in Water (Vial) 50 ML VIAL IVP PRN (22:09)
[2019-11-25] MEDS ORDERED: D5% in Water 1,000 ML IVC PRN (22:09)
[2019-11-25] MEDS ORDERED: Azithromycin 500 MG in 0.9 % Sodium Chloride 250 ML IVPB SCH (23:00)
[2019-11-26 00:11] LABS: Adenovirus Not Detected (Not Detect); Coronavirus 229E Not Detected (Not Detect); Coronavirus HKU1 Not Detected (Not Detect); Coronavirus NL63 Not Detected (Not Detect); Coronavirus OC43 Not Detected (Not Detect)
[2019-11-26 00:12] LABS: Human Metapneumovirus Not Detected (Not Detect)
[2019-11-26 00:13] LABS: Bordetella Pertussis Not Detected (Not Detect); Chlamydophila pneumoniae Not Detected (Not Detect); Human Rhinovirus/Enterovirus DETECTED (Not Detect); Influenza A Subtype 2009 H1 Not Detected (Not Detect); Influenza B Not Detected (Not Detect); Mycoplasma pneumoniae Not Detected (Not Detect); Parainfluenza Virus 1 Not Detected (Not Detect); Parainfluenza Virus 2 Not Detected (Not Detect); Parainfluenza Virus 3 Not Detected (Not Detect); Parainfluenza Virus 4 Not Detected (Not Detect); Respiratory Syncytial Virus Not Detected (Not Detect)
[2019-11-26] MEDS: MethylPREDNISolone 40 MG/ML VIAL IVP SCH ×3 (01:03→15:26)
[2019-11-26] MEDS: Ipratropium/Albuterol Neb 3 ML IH SCH ×3 (01:30→07:29)
[2019-11-26] MEDS: *HR* OxyCODONE/APAP 10/325 TABLET PO PRN (01:42)
[2019-11-26 03:27] LABS: INR 0.9; Prothrombin Time 10.6 Seconds (9.4-12.1)
[2019-11-26 03:35] LABS: Basophils # 0.1 K/mcL (0.0-0.2); Basophils % 0.3 %; Hematocrit 41.2 % (37.5-50.1); Lymphocytes # 0.4 K/mcL (0.6-4.6); Lymphocytes % 2.6 %; Mean Corpuscular HGB Conc 31.6 g/dL (31.6-35.5); Mean Corpuscular Hemoglobin 30.2 pg (28.0-33.3); Mean Corpuscular Volume 95.6 fL (83.0-100.0); Monocytes # 0.2 K/mcL (0.0-1.3); Neutrophils # 14.5 K/mcL (1.6-8.9); Platelet Count 320 K/mcL (140-400); Red Blood Count 4.31 M/mcL (4.19-5.50); Segmented Neutrophils % 94.1 %; White Blood Count 15.4 K/mcL (4.3-11.1)
[2019-11-26 03:46] LABS: BUN/Creatinine Ratio 19 (6-26); Blood Urea Nitrogen 15 mg/dL (8-23); Calcium 9.4 mg/dL (8.6-10.3); Carbon Dioxide 31 mEq/L (23-29); Chloride 97 mEq/L (98-107); Glucose 190 mg/dL (70-105); Magnesium 2.1 mg/dL (1.6-2.6); Osmolality,Calculated 288 (280-300); Potassium 4.2 mEq/L (3.5-5.1); Sodium 136 mEq/L (136-145); eGFR For African Americans > 60 (> 60); eGFR For Non-African Americans > 60 (> 60)
[2019-11-26] MEDS: Doxycycline 100 MG in 0.9 % Sodium Chloride Mini Bag 100 ML IVPB SCH ×2 (05:57→17:25)
[2019-11-26] MEDS ORDERED: Furosemide 40 MG TABLET PO SCH (09:00)
[2019-11-26] MEDS: Spironolactone 25 MG TABLET PO SCH (09:17)
[2019-11-26] MEDS: Furosemide 40 MG/4 ML VIAL IVP SCH ×2 (09:17→21:36)
[2019-11-26] MEDS: Magnesium Oxide 400 MG TABLET PO SCH (09:17)
[2019-11-26] MEDS: Metoprolol XL (24 HR) Succ 50 MG TAB.ER.24H PO SCH (09:17)
[2019-11-26] MEDS: Insulin LISPRO 300 UNITS/3 ML VIAL SQ SCH ×4 (09:17→21:25)
[2019-11-26] MEDS: Apixaban 5 MG TABLET PO SCH ×2 (09:17→21:36)
[2019-11-26] MEDS: Metoprolol XL (24 HR) Succ 25 MG TAB.ER.24H PO SCH (09:17)
[2019-11-26] MEDS: Budesonide/Formoterol 160/4.5 1 PUFF INH IH SCH ×2 (09:25→20:00)
[2019-11-26] MEDS ORDERED: Tiotropium 18 MCG inhalation IH SCH (10:00)
[2019-11-26] MEDS ORDERED: Furosemide 20 MG TABLET PO SCH (13:00)
[2019-11-26] MEDS: Albuterol 2.5 MG/3 ML NEBULIZER IH PRN (17:55)
[2019-11-26] MEDS: Insulin DETEMIR 100 UNIT/ML X5UNITS SQ SCH (21:37)
[2019-11-27] MEDS: *HR* OxyCODONE/APAP 10/325 TABLET PO PRN ×3 (00:22→16:51)
[2019-11-27] MEDS: MethylPREDNISolone 40 MG/ML VIAL IVP SCH ×3 (00:22→16:49)
[2019-11-27 02:58] LABS: Hematocrit 40.1 % (37.5-50.1); Hemoglobin 12.8 g/dL (12.9-16.9); Mean Corpuscular HGB Conc 31.9 g/dL (31.6-35.5); Mean Corpuscular Hemoglobin 30.1 pg (28.0-33.3); Mean Corpuscular Volume 94.4 fL (83.0-100.0); Mean Platelet Volume 9.8 fL (9.4-12.4); Platelet Count 307 K/mcL (140-400); Red Blood Count 4.25 M/mcL (4.19-5.50); Red Cell Distribution Width 15.1 % (11.5-14.5); White Blood Count 18.8 K/mcL (4.3-11.1)
[2019-11-27 03:19] LABS: BUN/Creatinine Ratio 34 (6-26); Blood Urea Nitrogen 33 mg/dL (8-23); Calcium 8.3 mg/dL (8.6-10.3); Carbon Dioxide 33 mEq/L (23-29); Chloride 96 mEq/L (98-107); Glucose 123 mg/dL (70-105); Osmolality,Calculated 289 (280-300); Potassium 4.2 mEq/L (3.5-5.1); Sodium 135 mEq/L (136-145); eGFR For African Americans > 60 (> 60); eGFR For Non-African Americans > 60 (> 60)
[2019-11-27] MEDS: Doxycycline 100 MG in 0.9 % Sodium Chloride Mini Bag 100 ML IVPB SCH (05:21)
[2019-11-27] MEDS: Albuterol 2.5 MG/3 ML NEBULIZER IH PRN ×2 (06:18→20:12)
[2019-11-27] MEDS: Budesonide/Formoterol 160/4.5 1 PUFF INH IH SCH ×2 (07:45→20:10)
[2019-11-27] MEDS: Insulin LISPRO 300 UNITS/3 ML VIAL SQ SCH ×4 (08:07→20:29)
[2019-11-27] MEDS: Furosemide 40 MG/4 ML VIAL IVP SCH ×2 (08:09→20:25)
[2019-11-27] MEDS: Apixaban 5 MG TABLET PO SCH ×2 (08:10→20:25)
[2019-11-27] MEDS: Magnesium Oxide 400 MG TABLET PO SCH (08:10)
[2019-11-27] MEDS: Metoprolol XL (24 HR) Succ 50 MG TAB.ER.24H PO SCH (08:10)
[2019-11-27] MEDS: Spironolactone 25 MG TABLET PO SCH (08:10)
[2019-11-27] MEDS: Metoprolol XL (24 HR) Succ 25 MG TAB.ER.24H PO SCH (08:10)
[2019-11-27] MEDS: Doxycycline 100 MG CAPSULE PO SCH (16:49)
[2019-11-27] MEDS: Insulin DETEMIR 100 UNIT/ML X5UNITS SQ SCH (20:29)
[2019-11-28] MEDS: MethylPREDNISolone 40 MG/ML VIAL IVP SCH ×3 (00:05→16:20)
[2019-11-28 03:24] LABS: Hematocrit 42.5 % (37.5-50.1); Hemoglobin 13.3 g/dL (12.9-16.9); Mean Corpuscular HGB Conc 31.3 g/dL (31.6-35.5); Mean Corpuscular Volume 95.9 fL (83.0-100.0); Mean Platelet Volume 9.7 fL (9.4-12.4); Platelet Count 313 K/mcL (140-400); Red Blood Count 4.43 M/mcL (4.19-5.50); Red Cell Distribution Width 14.8 % (11.5-14.5); White Blood Count 16.2 K/mcL (4.3-11.1)
[2019-11-28 03:42] LABS: BUN/Creatinine Ratio 38 (6-26); Blood Urea Nitrogen 33 mg/dL (8-23); Calcium 8.9 mg/dL (8.6-10.3); Carbon Dioxide 37 mEq/L (23-29); Chloride 94 mEq/L (98-107); Glucose 122 mg/dL (70-105); Osmolality,Calculated 289 (280-300); Potassium 4.3 mEq/L (3.5-5.1); Sodium 135 mEq/L (136-145); eGFR For African Americans > 60 (> 60); eGFR For Non-African Americans > 60 (> 60)
[2019-11-28] MEDS: Doxycycline 100 MG CAPSULE PO SCH ×2 (06:18→16:36)
[2019-11-28] MEDS: *HR* OxyCODONE/APAP 10/325 TABLET PO PRN (06:21)
[2019-11-28] MEDS: Insulin LISPRO 300 UNITS/3 ML VIAL SQ SCH ×4 (07:32→19:49)
[2019-11-28] MEDS: Spironolactone 25 MG TABLET PO SCH (07:56)
[2019-11-28] MEDS: Apixaban 5 MG TABLET PO SCH ×2 (07:56→19:46)
[2019-11-28] MEDS: Magnesium Oxide 400 MG TABLET PO SCH (07:56)
[2019-11-28] MEDS: Furosemide 40 MG/4 ML VIAL IVP SCH ×2 (07:56→19:47)
[2019-11-28] MEDS: Metoprolol XL (24 HR) Succ 25 MG TAB.ER.24H PO SCH (07:56)
[2019-11-28] MEDS: Metoprolol XL (24 HR) Succ 50 MG TAB.ER.24H PO SCH (07:56)
[2019-11-28] MEDS: Budesonide/Formoterol 160/4.5 1 PUFF INH IH SCH ×2 (08:03→20:18)
[2019-11-28] MEDS: Albuterol 2.5 MG/3 ML NEBULIZER IH PRN ×2 (13:51→21:37)
[2019-11-28] MEDS: Insulin DETEMIR 100 UNIT/ML X5UNITS SQ SCH (19:50)
[2019-11-29 01:22] LABS: Hemoglobin 13.2 g/dL (12.9-16.9); Mean Corpuscular HGB Conc 31.4 g/dL (31.6-35.5); Mean Corpuscular Hemoglobin 30.3 pg (28.0-33.3); Mean Corpuscular Volume 96.6 fL (83.0-100.0); Mean Platelet Volume 9.9 fL (9.4-12.4); Platelet Count 305 K/mcL (140-400); Red Blood Count 4.35 M/mcL (4.19-5.50); Red Cell Distribution Width 14.7 % (11.5-14.5); White Blood Count 14.9 K/mcL (4.3-11.1)
[2019-11-29 01:42] LABS: BUN/Creatinine Ratio 38 (6-26); Blood Urea Nitrogen 32 mg/dL (8-23); Calcium 8.2 mg/dL (8.6-10.3); Carbon Dioxide 35 mEq/L (23-29); Chloride 96 mEq/L (98-107); Glucose 91 mg/dL (70-105); Osmolality,Calculated 290 (280-300); Sodium 137 mEq/L (136-145); eGFR For African Americans > 60 (> 60); eGFR For Non-African Americans > 60 (> 60)
[2019-11-29] MEDS: Doxycycline 100 MG CAPSULE PO SCH (05:48)
[2019-11-29] MEDS: *HR* OxyCODONE/APAP 10/325 TABLET PO PRN (05:48)
[2019-11-29 06:53] VITALS: BP 141/79
[2019-11-29] MEDS: Budesonide/Formoterol 160/4.5 1 PUFF INH IH SCH (07:35)
[2019-11-29] MEDS: Insulin LISPRO 300 UNITS/3 ML VIAL SQ SCH (07:39)
[2019-11-29] MEDS: Metoprolol XL (24 HR) Succ 50 MG TAB.ER.24H PO SCH (07:44)
[2019-11-29] MEDS: Spironolactone 25 MG TABLET PO SCH (07:44)
[2019-11-29] MEDS: Apixaban 5 MG TABLET PO SCH (07:44)
[2019-11-29] MEDS: Magnesium Oxide 400 MG TABLET PO SCH (07:45)
[2019-11-29] MEDS: Metoprolol XL (24 HR) Succ 25 MG TAB.ER.24H PO SCH (07:45)
[2019-11-29] MEDS: Furosemide 40 MG/4 ML VIAL IVP SCH (07:46)
[2019-11-29] MEDS ORDERED: predniSONE 20 MG TABLET PO SCH (09:00)
== END 2019-11-29 11:26 | disposition home or self-care (01) | DRG 190 ==
LOC: 3BNU 19:06 → EMEROOARM 19:06 → 3BNU 11-26 00:37
PROVIDERS: ADMIT Internal Medicine; ATTEND Internal Medicine

== ENCOUNTER 2021-10-25 08:42 | Inpatient (IN) ==
[2021-10-25] MEDS ORDERED: *HR* HYDROmorphone PF 0.5 MG/0.5 ML SYRINGE IVP PRN (09:15)
[2021-10-25] MEDS ORDERED: *HR* OxyCODONE Immed Rel 5 MG TABLET PO PRN (09:15)
[2021-10-25] MEDS ORDERED: Promethazine 6.25 MG in Water for inj. (sterile) 20 ML IVPB PRN (09:15)
[2021-10-25] MEDS ORDERED: Ondansetron 4 MG/2 ML VIAL IVP PRN ×2 (09:15→13:06)
[2021-10-25] MEDS: Ringers Solution, Lactated 1,000 ML IVC SCH (10:10)
[2021-10-25] MEDS ORDERED: *HR* EPINEPHrine 1 MG/10 ML SYRINGE INTRATRACH PRN (11:53)
[2021-10-25] MEDS ORDERED: Albuterol 2.5 MG/3 ML NEBULIZER IH ONE (12:48)
[2021-10-25] MEDS ORDERED: Albuterol 2.5 MG/3 ML NEBULIZER ONE (12:49)
[2021-10-25] MEDS ORDERED: *HR* HYDROcodone/Acet 5/325 mg TABLET PO PRN (13:06)
[2021-10-25] MEDS ORDERED: Naloxone 0.4 MG/ML INJ IVP PRN (13:06)
[2021-10-25] MEDS ORDERED: Acetaminophen 325 MG TABLET PO PRN (13:06)
[2021-10-25] MEDS ORDERED: Albuterol 2.5 MG/3 ML NEBULIZER IH PRN (13:06)
[2021-10-25] MEDS: GuaiFENesin/Codeine Oral Soln 5 ML UDC PO PRN (13:47)
[2021-10-25] MEDS ORDERED: *HR* Dextrose 50 % in Water (Syg) 50 ML SYRINGE IVP PRN (14:07)
[2021-10-25] MEDS ORDERED: D5% in Water 1,000 ML IVC PRN (14:07)
[2021-10-25] MEDS ORDERED: Dextrose Gel 15 GM/37.5 ML TUBE PO PRN ×2 (14:07)
[2021-10-25] MEDS ORDERED: *HR* OxyCODONE Immed Rel 15 MG TABLET PO PRN (14:29)
[2021-10-25 15:54] LABS: Appearance of Body Fluid Slightly Hazy (Clear); Volume of Body Fluid 25 mL
[2021-10-25] MEDS ORDERED: *HR* Heparin 5,000 UNIT/ML VIAL SQ SCH (18:00)
[2021-10-25] MEDS: Insulin LISPRO 300 UNITS/3 ML VIAL SUBQ SCH ×2 (18:07→20:22)
[2021-10-25] MEDS: Furosemide 20 MG TABLET PO SCH (18:07)
[2021-10-25] MEDS: Pantoprazole 40 MG VIAL IVP SCH (18:07)
[2021-10-25] MEDS: Ipratropium/Albuterol Neb 3 ML IH SCH ×3 (18:20→20:49)
[2021-10-25] MEDS: Topiramate 25 MG TABLET PO SCH (20:11)
[2021-10-25 20:47] LABS: Basophils % 0.1 %; Hematocrit 34.6 % (37.5-50.1); Hemoglobin 10.8 g/dL (12.9-16.9); Immature Granulocytes % 1.1 % (0-4); Lymphocytes # 0.8 K/mcL (0.6-4.6); Lymphocytes % 5.6 %; Mean Corpuscular HGB Conc 31.2 g/dL (31.6-35.5); Mean Corpuscular Hemoglobin 29.6 pg (28.0-33.3); Mean Corpuscular Volume 94.8 fL (83.0-100.0); Mean Platelet Volume 9.7 fL (9.4-12.4); Monocytes # 0.5 K/mcL (0.0-1.3); Monocytes % 3.8 %; Neutrophils # 12.3 K/mcL (1.6-8.9); Platelet Count 283 K/mcL (140-400); Red Blood Count 3.65 M/mcL (4.19-5.50); Red Cell Distribution Width 14.4 % (11.5-14.5); Segmented Neutrophils % 89.4 %; White Blood Count 13.7 K/mcL (4.3-11.1)
[2021-10-25 20:55] LABS: Calcium 8.7 mg/dL (8.6-10.3); Magnesium 1.8 mg/dL (1.6-2.6); Phosphorous 4.3 mg/dL (2.7-4.5); Potassium 4.7 mEq/L (3.5-5.1)
[2021-10-26] MEDS: Ipratropium/Albuterol Neb 3 ML IH SCH ×6 (00:16→20:34)
[2021-10-26] MEDS ORDERED: Apixaban 5 MG TABLET PO SCH (01:15)
[2021-10-26 03:44] LABS: VBG Ionized Calcium 1.17 mmol/L (1.15-1.35)
[2021-10-26 04:00] LABS: Basophils % 0.2 %; Eosinophils % 0.1 %; Hematocrit 32.3 % (37.5-50.1); Hemoglobin 10.1 g/dL (12.9-16.9); Immature Granulocytes % 0.9 % (0-4); Lymphocytes # 1.3 K/mcL (0.6-4.6); Lymphocytes % 9.3 %; Mean Corpuscular HGB Conc 31.3 g/dL (31.6-35.5); Mean Corpuscular Hemoglobin 29.3 pg (28.0-33.3); Mean Corpuscular Volume 93.6 fL (83.0-100.0); Mean Platelet Volume 9.6 fL (9.4-12.4); Monocytes # 1.1 K/mcL (0.0-1.3); Monocytes % 7.9 %; Neutrophils # 11.4 K/mcL (1.6-8.9); Platelet Count 272 K/mcL (140-400); Red Blood Count 3.45 M/mcL (4.19-5.50); Red Cell Distribution Width 13.8 % (11.5-14.5); Segmented Neutrophils % 81.6 %
[2021-10-26 04:19] LABS: Albumin 2.9 g/dL (3.5-5.7); Albumin/Globulin Ratio 1.4 (1.1-2.2); Bilirubin,Indirect 0.3 mg/dL (0.0-1.0); Bilirubin,Total 0.3 mg/dL (0.3-1.0); Calcium 8.3 mg/dL (8.6-10.3); Globulin 2.1 g/dL (2.4-3.5); Phosphorous 3.3 mg/dL (2.7-4.5)
[2021-10-26] MEDS: Apixaban 5 MG TABLET PO SCH ×2 (05:02→21:14)
[2021-10-26] MEDS: Insulin LISPRO 300 UNITS/3 ML VIAL SUBQ SCH ×4 (08:31→21:14)
[2021-10-26] MEDS: Pantoprazole 40 MG VIAL IVP SCH (08:32)
[2021-10-26] MEDS: Magnesium Oxide 400 MG TABLET PO SCH (08:33)
[2021-10-26] MEDS: Spironolactone 25 MG TABLET PO SCH (08:33)
[2021-10-26] MEDS: Furosemide 20 MG TABLET PO SCH ×2 (08:33→18:18)
[2021-10-26] MEDS: Metoprolol XL (24 HR) Succ 50 MG TAB.ER.24H PO SCH (08:33)
[2021-10-26] MEDS: (Roflumilast [Daliresp] 500 MCG Tablet) PO SCH (08:39)
[2021-10-26] MEDS ORDERED: Furosemide 20 MG TABLET PO SCH (13:00)
[2021-10-26] MEDS: Topiramate 25 MG TABLET PO SCH (21:13)
[2021-10-26] MEDS: GuaiFENesin/Codeine Oral Soln 5 ML UDC PO PRN (21:13)
[2021-10-26] MEDS: Albumin Human 5% 12.5 GM/250 ML IV.SOLN IVC SCH (23:03)
[2021-10-27] MEDS: Ipratropium/Albuterol Neb 3 ML IH SCH ×6 (00:06→20:34)
[2021-10-27] MEDS: Albumin Human 5% 12.5 GM/250 ML IV.SOLN IVC SCH (03:17)
[2021-10-27] MEDS: GuaiFENesin/Codeine Oral Soln 5 ML UDC PO PRN (03:36)
[2021-10-27] MEDS ORDERED: Amiodarone Premix 360 MG/200 ML BAG IVC ONE (04:09)
[2021-10-27] MEDS ORDERED: Amiodarone Premix 150 MG/100 ML BAG IVPB ONE ×2 (04:09→04:21)
[2021-10-27 06:44] LABS: Basophils # 0.1 K/mcL (0.0-0.2); Basophils % 0.6 %; Eosinophils # 0.2 K/mcL (0.0-0.6); Eosinophils % 1.1 %; Hematocrit 34.2 % (37.5-50.1); Hemoglobin 10.6 g/dL (12.9-16.9); Immature Granulocytes % 1.5 % (0-4); Lymphocytes # 1.4 K/mcL (0.6-4.6); Lymphocytes % 10.6 %; Mean Corpuscular Hemoglobin 29.5 pg (28.0-33.3); Mean Corpuscular Volume 95.3 fL (83.0-100.0); Mean Platelet Volume 9.8 fL (9.4-12.4); Monocytes # 1.5 K/mcL (0.0-1.3); Monocytes % 11.2 %; Neutrophils # 9.8 K/mcL (1.6-8.9); Platelet Count 250 K/mcL (140-400); Red Blood Count 3.59 M/mcL (4.19-5.50); Red Cell Distribution Width 14.3 % (11.5-14.5); White Blood Count 13.1 K/mcL (4.3-11.1)
[2021-10-27 06:57] LABS: Calcium 7.9 mg/dL (8.6-10.3); Phosphorous 2.6 mg/dL (2.7-4.5)
[2021-10-27] MEDS: Insulin LISPRO 300 UNITS/3 ML VIAL SUBQ SCH ×4 (08:34→21:08)
[2021-10-27] MEDS: Apixaban 5 MG TABLET PO SCH ×2 (08:43→21:13)
[2021-10-27] MEDS: Furosemide 20 MG TABLET PO SCH ×2 (08:44→17:25)
[2021-10-27] MEDS: Magnesium Oxide 400 MG TABLET PO SCH (08:44)
[2021-10-27] MEDS: Metoprolol XL (24 HR) Succ 50 MG TAB.ER.24H PO SCH (08:44)
[2021-10-27] MEDS: Spironolactone 25 MG TABLET PO SCH (08:44)
[2021-10-27] MEDS: Pantoprazole 40 MG VIAL IVP SCH (08:46)
[2021-10-27] MEDS: (Roflumilast [Daliresp] 500 MCG Tablet) PO SCH (08:46)
[2021-10-27] MEDS: Amiodarone Premix 360 MG/200 ML BAG IVC SCH ×2 (10:05→22:49)
[2021-10-27] MEDS: Topiramate 25 MG TABLET PO SCH (21:13)
[2021-10-28] MEDS: Ipratropium/Albuterol Neb 3 ML IH SCH ×7 (00:03→23:25)
[2021-10-28 04:45] LABS: VBG Ionized Calcium 1.04 mmol/L (1.15-1.35)
[2021-10-28 04:47] LABS: Basophils # 0.1 K/mcL (0.0-0.2); Basophils % 0.8 %; Eosinophils # 0.2 K/mcL (0.0-0.6); Hematocrit 35.4 % (37.5-50.1); Hemoglobin 10.9 g/dL (12.9-16.9); Immature Granulocytes % 2.6 % (0-4); Lymphocytes % 9.6 %; Mean Corpuscular HGB Conc 30.8 g/dL (31.6-35.5); Mean Corpuscular Hemoglobin 29.1 pg (28.0-33.3); Mean Corpuscular Volume 94.4 fL (83.0-100.0); Mean Platelet Volume 9.6 fL (9.4-12.4); Monocytes # 1.3 K/mcL (0.0-1.3); Monocytes % 11.7 %; Neutrophils # 7.8 K/mcL (1.6-8.9); Platelet Count 241 K/mcL (140-400); Red Blood Count 3.75 M/mcL (4.19-5.50); Red Cell Distribution Width 14.1 % (11.5-14.5); Segmented Neutrophils % 73.3 %; White Blood Count 10.7 K/mcL (4.3-11.1)
[2021-10-28 04:53] LABS: Magnesium 2.2 mg/dL (1.6-2.6); Phosphorous 2.7 mg/dL (2.7-4.5); Potassium 3.4 mEq/L (3.5-5.1)
[2021-10-28] MEDS: Pantoprazole 40 MG VIAL IVP SCH (07:48)
[2021-10-28] MEDS: Magnesium Oxide 400 MG TABLET PO SCH (07:49)
[2021-10-28] MEDS: Furosemide 20 MG TABLET PO SCH ×2 (07:49→15:45)
[2021-10-28] MEDS: Metoprolol XL (24 HR) Succ 50 MG TAB.ER.24H PO SCH (07:49)
[2021-10-28] MEDS: Spironolactone 25 MG TABLET PO SCH (07:49)
[2021-10-28] MEDS: Apixaban 5 MG TABLET PO SCH ×2 (07:49→20:47)
[2021-10-28] MEDS: (Roflumilast [Daliresp] 500 MCG Tablet) PO SCH (07:50)
[2021-10-28] MEDS: Insulin LISPRO 300 UNITS/3 ML VIAL SUBQ SCH ×4 (07:50→20:48)
[2021-10-28] MEDS: Amiodarone Premix 360 MG/200 ML BAG IVC SCH ×2 (10:30→21:54)
[2021-10-28] MEDS: Topiramate 25 MG TABLET PO SCH (20:47)
[2021-10-29] MEDS: Ringers Solution, Lactated 1,000 ML IVC SCH (02:56)
[2021-10-29 03:36] LABS: Basophils # 0.1 K/mcL (0.0-0.2); Basophils % 0.6 %; Eosinophils # 0.2 K/mcL (0.0-0.6); Eosinophils % 2.2 %; Hematocrit 33.4 % (37.5-50.1); Hemoglobin 10.4 g/dL (12.9-16.9); Immature Granulocytes % 3.2 % (0-4); Lymphocytes # 0.9 K/mcL (0.6-4.6); Lymphocytes % 9.6 %; Mean Corpuscular HGB Conc 31.1 g/dL (31.6-35.5); Monocytes # 1.2 K/mcL (0.0-1.3); Monocytes % 11.9 %; Platelet Count 249 K/mcL (140-400); Red Blood Count 3.59 M/mcL (4.19-5.50); Segmented Neutrophils % 72.5 %; White Blood Count 9.7 K/mcL (4.3-11.1)
[2021-10-29 03:41] LABS: Potassium 3.7 mEq/L (3.5-5.1)
[2021-10-29 03:42] LABS: Calcium 7.7 mg/dL (8.6-10.3); Magnesium 2.1 mg/dL (1.6-2.6); Phosphorous 2.5 mg/dL (2.7-4.5)
[2021-10-29] MEDS: Ipratropium/Albuterol Neb 3 ML IH SCH ×4 (03:48→10:58)
[2021-10-29] MEDS: Furosemide 20 MG TABLET PO SCH (07:39)
[2021-10-29] MEDS: Metoprolol XL (24 HR) Succ 50 MG TAB.ER.24H PO SCH (07:39)
[2021-10-29] MEDS: Magnesium Oxide 400 MG TABLET PO SCH (07:40)
[2021-10-29] MEDS: Apixaban 5 MG TABLET PO SCH (07:40)
[2021-10-29] MEDS: Pantoprazole 40 MG VIAL IVP SCH (07:40)
[2021-10-29] MEDS: Spironolactone 25 MG TABLET PO SCH (07:40)
[2021-10-29 07:57] VITALS: TEMP 97.7
[2021-10-29] MEDS: Insulin LISPRO 300 UNITS/3 ML VIAL SUBQ SCH ×2 (08:30→12:19)
[2021-10-29] MEDS ORDERED: *HR* Amiodarone 200 MG TABLET PO SCH (09:00)
[2021-10-29 13:39] VITALS: O2SAT 97
[2021-10-29 15:20] VITALS: BP 95/66; PULSE 86
== END 2021-10-29 15:17 | disposition home or self-care (01) | DRG 191 ==
LOC: SAMDAY 08:42 → ICNU 16:43
PROVIDERS: ADMIT Internal Medicine Pulmonary Disease; ATTEND Internal Medicine Pulmonary Disease
PROC: ENDOLBX (2021-10-25 08:55)